=== PATIENT | female | born 1975 | race Caucasian/White ===

== ENCOUNTER 2016-12-27 11:20 | Emergency (ER) | payer OTHER, SELFPAY ==
[2016-12-27] MEDS ORDERED: Sodium Chloride 0.9% 1000 ML 1,000 ML IV STA (11:43)
[2016-12-27] MEDS ORDERED: Sodium Chloride 0.9% 1000 ML 1,000 ML ONE (11:49)
--- NOTE | 2016-12-27 11:50 | ERPHSYRPT ---
- History of Present Illness Time Seen by Provider: 12/27/16 11:37 Source: patient Exam Limitations: no limitations Patient Subjective Stated Complaint: pt broke out in a sweat and then passed out ,she states has not felt well for a couple weeks now states having near syncopal episodes, pt states now feels exhausted, has not eat today Triage Nursing Assessment: pt walked in, alert and oriented, resp easy, right of way man equal, pupils rita,2mm Physician History: 41-year-old white female arrives with complaint of fainted at work today at around 10:45 AM. 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 She did not fall she did not hit her head she has no chest pain shortness of breath abdominal pain nausea vomiting. Patient states she was passed out for maybe 15 minutes. Patient states she has been having problems with her blood pressure at home and feels like his been high home and she states she vitals out sometimes with her blood pressure. Patient also states that she did not eat anything today. Past medical history includes high blood pressure patient also history of seizures in the past which were possibly complex partial also history of depression. Past surgical history includes appendectomy and hysterectomy. Social history is positive for tobacco use she denies alcohol or illicit drug use. Timing/Duration: today (10:45 AM) Severity: moderate Modifying Factors: Improves With: other (ccurred while working) Associated Symptoms: diaphoresis, weakness (felt weak), No nausea, No vomiting, No abdominal pain, No shortness of breath, No heartburn, No cough, No chills, No chest pain, No fever, No headaches, No loss of appetite, No malaise, No rash , No syncope, No seizure Allergies/Adverse Reactions: morphine Allergy (Intermediate, Verified 12/27/16 11:36) Hives Home Medications: Amlodipine Besylate 10 mg [Norvasc 10 MG] 10 mg PO DAILY 08/03/16 [History] Dextroamphetamine/Amphetamine [Adderall 20 mg Tablet] 20 mg PO BID 08/03/16 [ History] Fenofibrate,Micronized 145 mg* [Tricor 145 MG] 145 mg PO DAILY 08/03/16 [ History] Hctz/Triamterene 75/50 mg [Maxzide 75/50] 1 tab PO DAILY 08/03/16 [History] Hydrochlorothiazide 25 mg [hydroDIURIL 25 MG] 25 mg PO DAILY 08/03/16 [ History] Loratadine 10 mg [Claritin 10 mg] 10 mg PO DAILY 08/03/16 [History] Metoprolol Succinate 100 mg [Toprol Xl 100 MG] 100 mg PO DAILY 08/03/16 [ History] Potassium Chloride 10 Meq Tab* [Klor Con 10 MEQ] 10 meq PO DAILY 08/03/16 [ History] Olmesartan Medoxomil 20 mg [Benicar 20 MG] 20 mg DAILY 12/27/16 [History] Omeprazole 20 MG [Prilosec 20 mg] 20 mg DAILY 12/27/16 [History] Hx Tetanus, Diphtheria Vaccination/Date Given: Yes Hx Influenza Vaccination/Date Given: No Hx Pneumococcal Vaccination/Date Given: No Immunizations Up to Date: Yes - Review of Systems Constitutional: No Fever, No Chills Eyes: No Symptoms Ears, Nose, & Throat: No Symptoms, No Ear Pain, No Ear Discharge, No Hearing Changes, No Tinnitus, No Nose Pain, No Nose Congestion, No Nose Discharge, No Sinus Drainage, No Epistaxis, No Mouth Pain, No Mouth Swelling, No Loose Teeth, No Throat Pain, No Throat Swelling, No Hoarse, No Painful Swallowing, No Snoring , No Stridor Respiratory: No Cough, No Dyspnea Cardiac: No Chest Pain, No Edema, No Syncope Abdominal/Gastrointestinal: No Abdominal Pain, No Nausea, No Vomiting, No Diarrhea Genitourinary Symptoms: No Dysuria Musculoskeletal: No Back Pain, No Neck Pain Skin: No Rash Neurological: Other (syncope at work), No Dizziness, No Focal Weakness, No Gait Changes, No Headache, No Irritability, No Lethargy, No Paralysis, No Parasthesia , No Seizure, No Sensory Changes, No Speech Changes, No Tics, No Tremors, No Vertigo Psychological: No Symptoms Endocrine: No Symptoms All Other Systems: Reviewed and Negative - Past Medical History Pertinent Past Medical History: No Neurological History: Seizures ENT History: No Pertinent History Cardiac History: No Pertinent History Respiratory History: No Pertinent History, Other Endocrine Medical History: No Pertinent History Musculoskeletal History: No Pertinent History GI Medical History: No Pertinent History History: No Pertinent History Psycho-Social History: Depression, Other Female Reproductive Disorders: No Pertinent History Other Medical History: last seizure 3 years ago due to prilosec - Past Surgical History Past Surgical History: Yes Neuro Surgical History: No Pertinent History Cardiac: No Pertinent History Respiratory: No Pertinent History Gastrointestinal: Appendectomy Genitourinary: No Pertinent History Musculoskeletal: No Pertinent History Female Surgical History: Hysterectomy - Social History Smoking Status: Current some day smoker How long have you smoked: 20 yrs Exposure to second hand smoke: Yes Drug Use: none Patient Lives Alone: No - Female History Hx Last Menstrual Period: hyster Hx Now: No - Nursing Vital Signs Nursing Vital Signs: Initial Vital Signs Temperature 97.4 F 12/27/16 11:22 Pulse Rate 65 12/27/16 11:22 Respiratory Rate 16 12/27/16 11:22 Blood Pressure 137/80 12/27/16 11:22 O2 Sat by Pulse Oximetry 97 12/27/16 11:22 Pain Scale Pain Intensity 0 - Physical Exam General Appearance: no apparent distress, alert Eye Exam: PERRL/EOMI, eyes nml inspection Ears, Nose, Throat Exam: normal ENT inspection, TMs normal, pharynx normal, moist mucous membranes Neck Exam: normal inspection, non-tender, supple, full range of motion Respiratory Exam: normal breath sounds, lungs clear, No respiratory distress Cardiovascular Exam: regular rate/rhythm, normal heart sounds, normal peripheral pulses Gastrointestinal/Abdomen Exam: soft, normal bowel sounds, No tenderness, No mass Back Exam: normal inspection, normal range of motion, No CVA tenderness, No vertebral tenderness Extremity Exam: normal inspection, normal range of motion, pelvis stable Neurologic Exam: alert, oriented x 3, cooperative, normal mood/affect, nml cerebellar function, nml station & gait, sensation nml, No motor deficits, No sensory deficit, No disoriented, No confusion, No agitation, No uncooperative, No intoxicated appearance, No depressed mood/affect, No motor weakness, No facial droop, No slurred speech, No aphasia, No dysarthria, No abnormal gait, No abnormal cerebellar tests, 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, No EOM palsy Skin Exam: normal color, warm, dry, No rash Lymphatic Exam: No adenopathy SpO2 Interpretation: normal (97%) SpO2: 97 Oxygen Delivery: Room Air - Course Nursing assessment & vital signs reviewed: Yes EKG Interpreted by Me: RATE (56 bpm), Sinus Matt, NORMAL AXIS, Other (EKG sinus arrhythmiasinus arrhythmia, 56 bpm, normal axis, no acute ST or T wave changes, no acute changes as compared to March 24, 2012) Ordered Tests: Active Orders 24 hr Category Date Time Status Accucheck STAT Care 12/27/16 11:43 Active EKG-ER Only STAT Care 12/27/16 11:43 Active IV Insertion STAT Care 12/27/16 11:43 Active Orthostatic Vital Signs STAT Care 12/27/16 11:43 Active Pulse Oximetry (ED) STAT Care 12/27/16 11:43 Active CBC W DIFF Stat Lab 12/27/16 12:05 Completed CMP Stat Lab 12/27/16 12:05 Completed TROPONIN Q3H Lab 12/27/16 12:05 Completed TROPONIN Q3H Lab 12/27/16 14:45 Ordered TROPONIN Q3H Lab 12/27/16 17:45 Ordered TROPONIN Q3H Lab 12/27/16 20:45 Ordered TROPONIN Q3H Lab 12/27/16 23:45 Ordered UA W/RFX UR CULTURE Stat Lab 12/27/16 11:43 Completed Medication Summary Discontinued Medications Generic Name Dose Route Start Last Admin Trade Name Freq PRN Reason Stop Dose Admin Sodium Chloride 1,000 mls @ 999 mls/hr 12/27/16 11:43 12/27/16 11:49 Sodium Chloride 0.9% 1000 Ml IV 12/27/16 12:43 999 mls/hr .Q1H1M STA Administration Sodium Chloride Confirm 12/27/16 11:49 Sodium Chloride 0.9% 1000 Ml Administered 12/27/16 11:50 Dose 1,000 mls @ ud .ROUTE .STK-MED ONE Lab/Rad Data: Laboratory Result Diagrams 12/27/16 12:05 12/27/16 12:05 Laboratory Results 12/27/16 12/27/16 12/27/16 Range/Units 12:05 12:05 12:05 WBC 7.4 (4.0-10.5) K/mm3 RBC 5.03 (4.1-5.4) M/mm3 Hgb 14.7 (12.0-16.0) gm/dl Hct 43.7 (35-47) % MCV 86.9 (78-100) fl MCH 29.2 (26-32) pg MCHC 33.6 (32-36) g/dl RDW 13.3 (11.5-14.0) % Plt Count 217 (150-450) K/mm3 MPV 11.8 H (6-9.5) fl Gran % 66.1 H (36.0-66.0) % Lymphocytes % 23.9 L (24.0-44.0) % Monocytes % 6.5 (0.0-12.0) % Eosinophils % 3.0 (0.00-5.0) % Basophils % 0.5 (0.0-0.4) % Basophils # 0.04 (0-0.4) Sodium 142 (136-145) mEq/L Potassium 4.2 (3.5-5.1) mEq/L Chloride 108 H (98-107) mEq/L Carbon Dioxide 23.1 (21-32) mEq/L Anion Gap 15.1 H (5-15) MEQ/L BUN 23 H (9-20) mg/dL Creatinine 1.44 H (0.55-1.30) mg/dl Estimated GFR 42 ML/MIN Glucose 102 (70-110) MG/DL Calcium 9.6 (8.5-10.1) mg/dL Total Bilirubin 0.30 (0.2-1.0) mg/dL AST 22 (15-37) U/L ALT 24 (12-78) U/L Alkaline Phosphatase 61 (46-116) U/L Troponin I < 0.017 (0.000-0.056) ng/ml Serum Total Protein 7.6 (6.4-8.2) gm/dL Albumin 4.1 (3.4-5.0) g/dL Ur Collection Type Urine Color (YELLOW) Urine Appearance (CLEAR) Urine pH (5-6) Ur Specific [place] (1.005-1.025) Urine Protein (Negative) Urine Ketones (NEGATIVE) Urine Blood (0-5) Fabio/ul Urine Nitrite (NEGATIVE) Urine Bilirubin (NEGATIVE) Urine Urobilinogen (0-1) mg/dL Ur Leukocyte Esterase (NEGATIVE) Urine Glucose (NEGATIVE) mg/dL Specimen Received 12/27/16 Range/Units 11:43 WBC (4.0-10.5) K/mm3 RBC (4.1-5.4) M/mm3 Hgb (12.0-16.0) gm/dl Hct (35-47) % MCV (78-100) fl MCH (26-32) pg MCHC (32-36) g/dl RDW (11.5-14.0) % Plt Count (150-450) K/mm3 MPV (6-9.5) fl Gran % (36.0-66.0) % Lymphocytes % (24.0-44.0) % Monocytes % (0.0-12.0) % Eosinophils % (0.00-5.0) % Basophils % (0.0-0.4) % Basophils # (0-0.4) Sodium (136-145) mEq/L Potassium (3.5-5.1) mEq/L Chloride (98-107) mEq/L Carbon Dioxide (21-32) mEq/L Anion Gap (5-15) MEQ/L BUN (9-20) mg/dL Creatinine (0.55-1.30) mg/dl Estimated GFR ML/MIN Glucose (70-110) MG/DL Calcium (8.5-10.1) mg/dL Total Bilirubin (0.2-1.0) mg/dL AST (15-37) U/L ALT (12-78) U/L Alkaline Phosphatase (46-116) U/L Troponin I (0.000-0.056) ng/ml Serum Total Protein (6.4-8.2) gm/dL Albumin (3.4-5.0) g/dL Ur Collection Type VOID Urine Color YELLOW (YELLOW) Urine Appearance CLEAR (CLEAR) Urine pH 5.0 (5-6) Ur Specific [place] 1.020 (1.005-1.025) Urine Protein NEGATIVE (Negative) Urine Ketones NEGATIVE (NEGATIVE) Urine Blood NEGATIVE (0-5) Fabio/ul Urine Nitrite NEGATIVE (NEGATIVE) Urine Bilirubin NEGATIVE (NEGATIVE) Urine Urobilinogen NORMAL (0-1) mg/dL Ur Leukocyte Esterase NEGATIVE (NEGATIVE) Urine Glucose NEGATIVE (NEGATIVE) mg/dL Specimen Received 12/27/16 1143 - Progress Progress: improved Progress Note: 12/27/16 13:05 41-year-old white female passed out at work today she has been having problems with her blood pressure. She states that she became diaphoretic and passed out. She states she did not eat today. She arrives alert oriented 3 she is in no distress she has had no problems since arrival. Orthostatic vital signs are normal. Labs are essentially normal with the exception of elevated GFR. And mildly elevated BUN and creatinine. Troponin within normal limits EKG no acute changes CBC within normal limits. Patient has been given 1 L of normal saline. Will plan to discharge. Diagnosis syncope (vasovagal) Mild dehydration. Patient does have a history of complex partial seizures noted in the past patient advised not to drive to avoid heights take showers instead of baths and not engage in any activity which can harm herself or others. Will give patient today tomorrow off work patient is to return home and rest and follow-up with her family doctor call him for an appointment. - Departure Time of Disposition: 13:07 Departure Disposition: Home Clinical Impression: Vasovagal syncope, Mild dehydration, History of seizures Condition: Fair Critical Care Time: No Instructions: Fainting Additional Instructions: Return home rest plenty of fluids. Eat frequent small meals. No heights, no hazardous activity, no driving, take showers instead of baths. Follow-up with your family doctor call today to schedule an appointment. Return for acute distress or for severe symptoms.
[2016-12-27 12:16] LABS: BASOPHIL % 0.5 % (0.0-0.4); Granulocytes % 66.1 % (36.0-66.0); Lymphocytes % 23.9 % (24.0-44.0); Mean Cell Volume 86.9 fl (78-100); Mean Corpuscular Hemoglobin 29.2 pg (26-32); Mean Platelet Volume 11.8 fl (6-9.5); Monocytes % 6.5 % (0.0-12.0); Platelet Count 217 K/mm3 (150-450); Red Blood Count 5.03 M/mm3 (4.1-5.4); Red Cell Distribution Width 13.3 % (11.5-14.0); White Blood Count 7.4 K/mm3 (4.0-10.5)
[2016-12-27 12:19] LABS: ADD URINE CULTURE? NO (NO); Bilirubin NEGATIVE (NEGATIVE); Blood NEGATIVE Ery/ul (0-5); COMPLETE URINE MICROSCOPIC? NO; Collection Type VOID; Glucose NEGATIVE (NEGATIVE); Leukocyte Esterase NEGATIVE (NEGATIVE)
[2016-12-27 12:47] LABS: ALBUMIN 4.1 g/dL (3.4-5.0); ANION GAP 15.1 MEQ/L (5-15); BILIRUBIN,TOTAL 0.3 mg/dL (0.2-1.0); Carbon Dioxide 23.1 mEq/L (21-32); Potassium 4.2 mEq/L (3.5-5.1); Total Protein 7.6 gm/dL (6.4-8.2)
[2016-12-27 13:03] VITALS: BP 127/79; PULSE 59
[2016-12-27 13:09] VITALS: O2SAT 97
== END 2016-12-27 13:17 | disposition home or self-care (01) ==
LOC: ED 11:20
DX: R55 Syncope and collapse (principal); E86.0 Dehydration; R56.9 Unspecified convulsions; I10 Essential (primary) hypertension; Z79.899 Other long term (current) drug therapy; R61 Generalized hyperhidrosis; R53.1 Weakness
CPT/HCPCS: 36000; 36415; 80053; 81002; 82962; 84484; 85025; 93005; 96360; 99284

== ENCOUNTER 2021-03-23 00:29 | Emergency (ER) | payer OTHER ==
[2021-03-23] MEDS ORDERED: NEOSYNEPHRINE 0.5% NASAL SPRAY/DROPS ONE (00:53)
[2021-03-23] MEDS ORDERED: NEOSYNEPHRINE 0.5% NASAL SPRAY/DROPS NS ONE (00:59)
--- NOTE | 2021-03-23 01:00 | ERPHSYRPT ---
- History of Present Illness Time Seen by Provider: 03/23/21 00:40 Source: patient Exam Limitations: no limitations Patient Subjective Stated Complaint: My nose started bleeding and I can't get it to quit Triage Nursing Assessment: pt had nosebleed at home and couldn't get it to quit. Pt was getting out her pills tonight and it started dripping and she couldn't get it to stop. Pt had 2 big clots at home from her nose and one that she spit out. Nose was bleeding slightly upon arrival, Placed nose clip on her. Physician History: This is a 46-year-old white female patient who has a history of hypertension and presents with primarily left nostril epistaxis. Earlier in the day she had used her nasal spray that is a saline spray because she has dry nasal mucosa. She had a small amount of bleeding from the left nostril several hours ago but it had spontaneously stopped after 20 or 30 minutes on its own. This evening, patient was unpacking her items in her new home and was getting ready to take her blood pressure medication when she started having more significant bleeding from her left nostril. She coughed up a couple of clots and there was some bleeding from her left nostril. It did not stop for 30 to 40 minutes and so she came into the emergency room for evaluation. By the time she was in the emergency department room, she did not have any significant bleeding and there were no clots present. Nasal clip was immediately placed. Patient has no bleeding or clotting disorders. Patient is not on any anticoagulation therapy. Her systolic blood pressure when she arrived was 180. However repeat systolic blood pressure was 150. Timing/Duration: abrupt onset, this morning, yesterday Severity: mild ENT Location: nose Prearrival Treatment: squeezing nostrils Associated Symptoms: epistaxis (Left greater than right) Allergies/Adverse Reactions: morphine Allergy (Intermediate, Verified 03/23/21 00:41) Hives Home Medications: Amlodipine Besylate 10 mg [Norvasc 10 MG] 10 mg PO DAILY 08/03/16 [History] Dextroamphetamine/Amphetamine [Adderall 20 mg Tablet] 20 mg PO BID 08/03/16 [History] Fenofibrate,Micronized 145 mg* [Tricor 145 MG] 145 mg PO DAILY 08/03/16 [History] Hctz/Triamterene 75/50 mg [Maxzide 75/50] 1 tab PO DAILY 08/03/16 [History] Hydrochlorothiazide 25 mg [hydroDIURIL 25 MG] 25 mg PO DAILY 08/03/16 [History] Loratadine 10 mg [Claritin 10 mg] 10 mg PO DAILY 08/03/16 [History] Metoprolol Succinate 100 mg [Toprol Xl 100 MG] 100 mg PO DAILY 08/03/16 [History] Potassium Chloride 10 Meq Tab* [Klor Con 10 MEQ] 10 meq PO DAILY 08/03/16 [History] Olmesartan Medoxomil 20 mg [Benicar 20 MG] 20 mg DAILY 12/27/16 [History] Omeprazole 20 MG [Prilosec 20 mg] 20 mg DAILY 12/27/16 [History] Hx Tetanus, Diphtheria Vaccination/Date Given: Yes Hx Influenza Vaccination/Date Given: No Hx Pneumococcal Vaccination/Date Given: No Immunizations Up to Date: Yes Travel Risk - International Travel Have you traveled outside of the country in past 3 weeks: No - Coronavirus Screening Are you exhibiting any of the following symptoms?: No Close contact with a COVID-19 positive Pt in past 14-21 Days: No - Vaccine Status Have you recieved a Covid-19 vaccination: Yes [employer]: [facility] - Vaccination Dates Date of 2cond Vaccination (if applicable): 02/25/21 - Review of Systems Constitutional: No Symptoms Eyes: No Symptoms Ears, Nose, & Throat: Other (Epistaxis left side nostril) Respiratory: No Symptoms Cardiac: No Symptoms Abdominal/Gastrointestinal: No Symptoms Genitourinary Symptoms: No Symptoms Musculoskeletal: No Symptoms Skin: No Symptoms Neurological: No Symptoms Psychological: No Symptoms Endocrine: No Symptoms Hematologic/Lymphatic: No Symptoms Immunological/Allergic: No Symptoms All Other Systems: Reviewed and Negative - Past Medical History Pertinent Past Medical History: Yes Neurological History: Seizures ENT History: No Pertinent History Cardiac History: No Pertinent History Respiratory History: Bronchitis Endocrine Medical History: Diabetes Type II Musculoskeletal History: No Pertinent History GI Medical History: No Pertinent History History: No Pertinent History Psycho-Social History: Depression, Other Female Reproductive Disorders: No Pertinent History Other Medical History: last seizure 3 years ago due to prilosec - Past Surgical History Past Surgical History: Yes Neuro Surgical History: No Pertinent History Cardiac: No Pertinent History Respiratory: No Pertinent History Gastrointestinal: Appendectomy Genitourinary: No Pertinent History Musculoskeletal: No Pertinent History Female Surgical History: Hysterectomy Other Surgical History: bladder repair - Social History Smoking Status: Current every day smoker How long have you smoked: 15 yrs Exposure to second hand smoke: Yes Drug Use: none Patient Lives Alone: No - Female History Hx Now: No - Nursing Vital Signs Nursing Vital Signs: Initial Vital Signs Temperature 99.1 F 03/23/21 00:29 Pulse Rate 117 H 03/23/21 00:29 Respiratory Rate 24 03/23/21 00:29 Blood Pressure 180/115 03/23/21 00:29 O2 Sat by Pulse Oximetry 98 03/23/21 00:29 Pain Scale Pain Intensity 0 - Physical Exam General Appearance: no apparent distress, alert, anxiety Eye Exam: bilateral eye: normal inspection, PERRL, EOMI Ear Exam: bilateral ear: auricle normal Nasal Exam: dried blood (No active bleeding. No bleeding sites visible within the nasal cavity/passages) Throat Exam: normal, pharynx normal (No active bleeding or clots visible.) Neck Exam: normal inspection, non-tender, supple, full range of motion, trachea midline Cardiovascular/Respiratory Exam: chest non-tender, no respiratory distress Abdominal Exam: non-tender Neurologic Exam: alert, oriented x 3, cooperative, toy maker II-XII nml as tested, normal mood/affect, nml cerebellar function, nml station & gait, sensation nml Skin Exam: normal color, warm, dry SpO2 Interpretation: normal SpO2: 98 O2 Delivery: Room Air - Course Nursing assessment & vital signs reviewed: Yes Ordered Tests: Medication Summary Discontinued Medications Generic Name Dose Route Start Last Admin Trade Name Freq PRN Reason Stop Dose Admin Phenylephrine HCl Confirm 03/23/21 00:53 Neosynephrine 0.5% Nasal [place]/Drops Administered 03/23/21 00:54 Dose 15 ml .ROUTE .[employer]-MED ONE - Progress Progress: improved Progress Note: 03/23/21 01:02 The patient states that she prefers the Zafar-Synephrine drops and nasal clip treatment. She does not want labs drawn at this time. She does not want any Rhino Rocket or equivalent nasal packing performed at this time. Counseled pt/family regarding: diagnosis, need for follow-up - Departure Departure Disposition: Home Clinical Impression: Epistaxis, Hypertension Condition: Stable Critical Care Time: No Referrals: GURU GONZALEZ [Primary Care Provider] - Additional Instructions: Use Zafar-Synephrine drops as instructed on the container every 4 hours if needed. If bleeding recurs, place 3 drops in the nostrils and then place the nasal clip as instructed. Return to the emergency department if bleeding does not stop. Take your blood pressure medicine when you get home. Do not pick your nose. Do not blow your nose.
[2021-03-23 01:50] VITALS: BP 167/95; PULSE 85; O2SAT 95
== END 2021-03-23 01:51 | disposition home or self-care (01) ==
LOC: ED 00:29
DX: R04.0 Epistaxis (principal); I10 Essential (primary) hypertension
CPT/HCPCS: 99283; A9270-GY

== ENCOUNTER 2022-12-20 13:12 | Emergency (ER) | payer OTHER ==
[2022-12-20 13:28] VITALS: TEMP 97.1
[2022-12-20] MEDS ORDERED: Zofran 4 MG/2 ML VIAL IV ONE (13:34)
[2022-12-20] MEDS ORDERED: ANTIVERT 25 MG PO ONE (13:34)
[2022-12-20] MEDS ORDERED: Sodium Chloride 0.9% 1000 ML 1,000 ML IV STA (13:34)
--- NOTE | 2022-12-20 13:39 | ERPHSYRPT ---
- History of Present Illness Time Seen by Provider: 12/20/22 13:24 Source: patient Exam Limitations: no limitations Patient Subjective Stated Complaint: Pt reports approx one hour ago while at work she started getting lightheaded and dizzy and became nauseated. Pt states s he has to move real slow to avoid falling due to dizziness. Triage Nursing Assessment: Pt alert and oriented x3. No apparent respiratory distress. Ambulated to ED cot with slow steady gait and assistance by spouse. Skin w/p/d. PERRLA. No active vomiting at this time. Physician History: 47 years old female with history of hypertension, hyperlipidemia, GERD presented in the ER with chief complaint of dizziness/lightheadedness. Patient reports sh celi was working at [employer], turned around too quickly started to feel lightheaded and dizzy with room spinning sensation with movements of head neck and better with resting. No numbness tingling or focal weakness. She also reports associated nausea but no vomiting. Does not report any chest pain palpitations or shortness of breath/blurry vision or difficulty speech associated with it. Symptoms are getting better on presentation in the ER. Timing/Duration: today, sudden, improved Severity: moderate Character of Deficits: none Deficits: no difficulties Baseline/Normal Cognition: alert oriented x 3 Current Cognition: alert oriented x 3 Baseline Gait: walks w/o assistance Associated Symptoms: nausea Allergies/Adverse Reactions: morphine Allergy (Intermediate, Verified 12/20/22 13:24) Hives Home Medications: Amlodipine Besylate 10 mg [Norvasc 10 MG] 10 mg PO DAILY 08/03/16 [History] Dextroamphetamine/Amphetamine [Adderall 20 mg Tablet] 20 mg PO BID 08/03/16 [History] Fenofibrate,Micronized 145 mg* [Tricor 145 MG] 145 mg PO DAILY 08/03/16 [History] Hydrochlorothiazide 25 mg [hydroDIURIL 25 MG] 25 mg PO DAILY 08/03/16 [ History] Loratadine 10 mg [Claritin 10 mg] 10 mg PO DAILY 08/03/16 [History] Metoprolol Succinate 100 mg [Toprol Xl 100 MG] 100 mg PO DAILY 08/03/16 [History] Potassium Chloride Tab* [Klor Con 10 MEQ] 10 meq PO DAILY 08/03/16 [History] Olmesartan Medoxomil 20 mg [Benicar 20 MG] 20 mg PO DAILY 12/27/16 [History] Omeprazole 20 MG [Prilosec 20 mg] 20 mg PO DAILY 12/27/16 [History] Hx Tetanus, Diphtheria Vaccination/Date Given: Yes Hx Influenza Vaccination/Date Given: Yes Hx Pneumococcal Vaccination/Date Given: No Travel Risk - International Travel Have you traveled outside of the country in past 3 weeks: No - Coronavirus Screening Are you exhibiting any of the following symptoms?: No Close contact with a COVID-19 positive Pt in past 14-21 Days: No - Vaccine Status Have you recieved a Covid-19 vaccination: Yes Survey Research Professor: Hojoki - Vaccination Dates Date of 2cond Vaccination (if applicable): 02/25/21 - Review of Systems Constitutional: Fatigue Eyes: No Symptoms Ears, Nose, & Throat: No Symptoms Respiratory: No Symptoms Cardiac: No Symptoms Abdominal/Gastrointestinal: No Symptoms Genitourinary Symptoms: No Symptoms Musculoskeletal: No Symptoms Skin: No Symptoms Neurological: Dizziness Psychological: No Symptoms Endocrine: No Symptoms Hematologic/Lymphatic: No Symptoms Immunological/Allergic: No Symptoms - Past Medical History Pertinent Past Medical History: Yes Neurological History: Seizures ENT History: No Pertinent History Cardiac History: No Pertinent History Respiratory History: Bronchitis Endocrine Medical History: Diabetes Type II Musculoskeletal History: No Pertinent History GI Medical History: No Pertinent History History: No Pertinent History Psycho-Social History: Depression, Other Female Reproductive Disorders: No Pertinent History Other Medical History: last seizure 3 years ago due to prilosec, vagal episode and reports daughter had to do cpr October 28 - Past Surgical History Past Surgical History: Yes Neuro Surgical History: No Pertinent History Cardiac: No Pertinent History Respiratory: No Pertinent History Gastrointestinal: Appendectomy Genitourinary: No Pertinent History Musculoskeletal: No Pertinent History Female Surgical History: Hysterectomy Other Surgical History: bladder repair - Social History Smoking Status: Current every day smoker How long have you smoked: 15 yrs Exposure to second hand smoke: Yes Drug Use: none Patient Lives Alone: No - Female History Hx Last Menstrual Period: hysterectomy Hx Now: No - Nursing Vital Signs Nursing Vital Signs: Initial Vital Signs Temperature 97.1 F 12/20/22 13:17 Pulse Rate 79 12/20/22 13:17 Respiratory Rate 17 12/20/22 13:17 Blood Pressure 102/71 12/20/22 13:17 O2 Sat by Pulse Oximetry 95 12/20/22 13:17 Pain Scale Pain Intensity 0 - Tomas Coma Scale Best Eye Response (Cromwell): (4) open spontaneously Best Verbal Response (Tomas): (5) oriented Best Motor Response (Cromwell): (6) obeys commands Tomas Total: 15 - Physical Exam General Appearance: no apparent distress, alert Eye Exam: bilateral eye: normal inspection, PERRL, EOMI Ears, Nose, Throat Exam: normal ENT inspection, TMs normal, pharynx normal, moist mucous membranes Neck Exam: normal inspection, non-tender, supple, full range of motion Respiratory: normal breath sounds, lungs clear Cardiovascular: regular rate/rhythm, normal heart sounds Gastrointestinal: soft, normal bowel sounds, No tenderness Back Exam: normal inspection, normal range of motion Extremity Exam: normal inspection, normal range of motion, pelvis stable Mental Status: alert, oriented x 3, 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 Exam: normal hearing, normal speech, PERRL Coordination/Gait: normal finger to nose, normal gait, normal cerebellar func tion, negative Romberg's sign Motor/Sensory: no motor deficit, no sensory deficit, no pronator drift, negative Babinski's sign DTR: bicep (R): 2+, bicep (L): 2+, knee (R): 2+, knee (L): 2+ Skin Exam: normal color SpO2 Interpretation: normal SpO2: 95 O2 Delivery: Room Air - Course EKG Interpreted by Me: RATE (76), Sinus Rhythm, NORMAL AXIS, NORMAL INTERVALS, NORMAL QRS Ordered Tests: Medication Summary Discontinued Medications Generic Name Dose Route Start Last Admin Trade Name Branden PRN Reason Stop Dose Admin Sodium Chloride 1,000 mls @ 999 mls/hr 12/20/22 13:34 12/20/22 14:54 Sodium Chloride 0.9% 1000 Ml IV 12/20/22 14:34 Infused .Q1H1M STA Infusion Sodium Chloride Confirm 12/20/22 13:43 Sodium Chloride 0.9% 1000 Ml Administered 12/20/22 13:44 Dose 1,000 mls @ ud .ROUTE .STK-MED ONE Sodium Chloride Confirm 12/20/22 13:51 Sodium Chloride 0.9% 1000 Ml Administered 12/20/22 13:52 Dose 1,000 mls @ ud .ROUTE .STK-MED ONE Magnesium Sulfate/Dextrose 100 mls @ 200 mls/hr 12/20/22 15:32 12/20/22 15:41 Magnesium 1 Gm / 100 Ml D5w IV 12/20/22 16:01 200 mls/hr STAT ONE Administration Magnesium Sulfate/Dextrose Confirm 12/20/22 15:40 Magnesium 1 Gm / 100 Ml D5w Administered 12/20/22 15:41 Dose 100 mls @ ud IV .STK-MED ONE Meclizine HCl 25 mg 12/20/22 13:34 12/20/22 13:53 Meclizine Hcl 25 Mg Tablet PO 12/20/22 13:35 25 mg STAT ONE Administration Meclizine HCl Confirm 12/20/22 13:42 Meclizine Hcl 25 Mg Tablet Administered 12/20/22 13:43 Dose 25 mg .ROUTE .STK-MED ONE Meclizine HCl Confirm 12/20/22 13:51 Meclizine Hcl 25 Mg Tablet Administered 12/20/22 13:52 Dose 25 mg .ROUTE .STK-MED ONE Ondansetron HCl 4 mg 12/20/22 13:34 12/20/22 13:53 Ondansetron Hcl 4 Mg/2 Ml Vial IV 12/20/22 13:35 4 mg STAT ONE Administration Ondansetron HCl Confirm 12/20/22 13:42 Ondansetron Hcl 4 Mg/2 Ml Vial Administered 12/20/22 13:43 Dose 4 mg .ROUTE .STK-MED ONE Ondansetron HCl Confirm 12/20/22 13:51 Ondansetron Hcl 4 Mg/2 Ml Vial Administered 12/20/22 13:52 Dose 4 mg .ROUTE .STK-MED ONE Lab/Rad Data: Laboratory Result Diagrams 12/20/22 13:40 12/20/22 13:40 Laboratory Results 12/20/22 12/20/22 12/20/22 Range/Units 13:40 13:40 13:40 WBC 8.4 (4.0-10.5) x10^3/uL RBC 4.27 (4.1-5.4) x10^6/uL Hgb 13.1 (12.0-16.0) g/dL Hct 38.1 (35-47) % MCV 89.2 (78-100) fL MCH 30.7 (26-32) pg MCHC 34.4 (32-36) g/dL RDW 12.9 (11.5-14.0) % Plt Count 191 (150-450) x10^3/uL MPV 10.5 (7.5-11.0) fL Gran % 67.5 H (36.0-66.0) % Immature Gran % (Auto) 0.4 (0.00-0.4) % Nucleat RBC Rel Count 0.0 (0.00-0.1) % Eos # (Auto) 0.24 (0-0.5) x10^3/uL Immature Gran # (Auto) 0.03 (0.00-0.03) x10^3u/L Absolute Lymphs (auto) 1.90 (1.0-4.6) x10^3/uL Absolute Monos (auto) 0.50 (0.0-1.3) x10^3/uL Absolute Nucleated RBC 0.00 (0.00-0.01) x10^3u/L Lymphocytes % 22.7 L (24.0-44.0) % Monocytes % 6.0 (0.0-12.0) % Eosinophils % 2.9 (0.00-5.0) % Basophils % 0.5 (0.0-0.4) % Absolute Granulocytes 5.65 (1.4-6.9) x10^3/uL Basophils # 0.04 (0-0.4) x10^3/uL Sodium 140 (137-145) mmol/L Potassium 3.3 L (3.5-5.1) mmol/L Chloride 105 (98-107) mmol/L Carbon Dioxide 25 (22-30) mmol/L Anion Gap 13.1 (5-15) MEQ/L BUN 22 H (7-17) mg/dL Creatinine 0.80 (0.52-1.04) mg/dL Estimated GFR > 60.0 ML/MIN Glucose 156 H (74-106) mg/dL Calcium 8.9 (8.4-10.2) mg/dL Magnesium 1.5 L (1.6-2.3) mg/dL Total Bilirubin 0.50 (0.2-1.3) mg/dL AST 32 (14-36) U/L ALT 39 H (0-35) U/L Alkaline Phosphatase 81 (38-126) U/L Troponin I < 0.012 (0.000-0.034) ng/mL Serum Total Protein 7.2 (6.3-8.2) g/dL Albumin 3.8 (3.5-5.0) g/dL - Progress Progress: improved Progress Note: 12/20/22 13:39 47 years old female with history of hypertension, hyperlipidemia, GERD presented in the ER with chief complaint of dizziness/lightheadedness. Patient reports she was working at [employer], turned around too quickly started to feel lightheaded and dizzy with room spinning sensation with movements of head neck and better with resting. No numbness tingling or focal weakness. She also reports associated nausea but no vomiting. Does not report any chest pain palpitations or shortness of breath/blurry vision or difficulty speech associated with it. Symptoms are getting better on presentation in the ER. Orthostatics, fluids and Zofran along with meclizine. Will obtain CT head and baseline labs including cardiac work-up. 12/20/22 15:46 Patient was borderline orthostatics. Given fluids along with meclizine and Zofran, on reevaluation she is symptom-free. She has nonfocal neuro exam. CT head is negative. Normal white count, chemistries showed mildly low magnesium and is getting replacement. Patient's symptoms are more of peripheral vertigo, will continue with meclizine to go home. Recommended outpatient follow-up. Discussed signs symptoms of worsening needing return to ER which she seems unde rstanding. Counseled pt/family regarding: lab results, diagnosis, need for follow-up, rad results, smoking cessation Medical Desision Making - Independent Historian Additional History obtained from: Spouse - Diagnostic Testing Diagnostic test were ordered, analyzed, and reviewed by me: Yes Radiological Interpretation: Reviewed by me - Risk of complications The pt has a mod risk of morbidity or mortality based on: Need for prescription drug management - Departure Departure Disposition: Home Clinical Impression: BPV (benign positional vertigo), Hypomagnesemia Condition: Stable Critical Care Time: No Referrals: MICHELA KAUFFMAN NP [Primary Care Provider] - Follow up with PCP 1 day Instructions: Vertigo (a Type of Dizziness) (DC) Additional Instructions: Plenty of fluids to keep yourself well-hydrated. Follow-up with primary care for reevaluation. Return to ER for worsening dizziness or if having numbness tingling focal weakness, visual disturbance etc. Prescriptions: Meclizine HCl 25 mg [Antivert 25 mg] 25 mg PO Q8HPRN PRN #12 tablet PRN Reason: Dizziness
[2022-12-20] MEDS ORDERED: ANTIVERT 25 MG ONE ×2 (13:42→13:51)
[2022-12-20] MEDS ORDERED: Zofran 4 MG/2 ML VIAL ONE ×2 (13:42→13:51)
[2022-12-20] MEDS ORDERED: Sodium Chloride 0.9% 1000 ML 0 ML ONE (13:43)
[2022-12-20 13:48] LABS: Absolute Neutrophil Ct (ANC) 5.65 x10^3/uL (1.4-6.9); BASOPHIL % 0.5 % (0.0-0.4); Basophil (Absolute #) 0.04 x10^3/uL (0-0.4); Eosinophil % 2.9 % (0.00-5.0); Eosinophil (Absolute #) 0.24 x10^3/uL (0-0.5); Hematocrit 38.1 % (35-47); Hemoglobin 13.1 g/dL (12.0-16.0); IMMATURE GRAN # 0.03 x10^3u/L (0.00-0.03); IMMATURE GRAN % 0.4 % (0.00-0.4); Lymphocytes % 22.7 % (24.0-44.0); Mean Cell Volume 89.2 fL (78-100); Mean Corpuscular Hemoglobin 30.7 pg (26-32); Mean Corpuscular Hgb Concent. 34.4 g/dL (32-36); Mean Platelet Volume 10.5 fL (7.5-11.0); Neutrophil % 67.5 % (36.0-66.0); Platelet Count 191 x10^3/uL (150-450); Red Blood Count 4.27 x10^6/uL (4.1-5.4); Red Cell Distribution Width 12.9 % (11.5-14.0); White Blood Count 8.4 x10^3/uL (4.0-10.5)
[2022-12-20] MEDS ORDERED: Sodium Chloride 0.9% 1000 ML 1,000 ML ONE (13:51)
--- NOTE | 2022-12-20 13:54 | XRAY ---
Indication: Dizziness and lightheaded. Comparison: May 02, 2022 Portable apical lordotic chest again hyperinflated and clear. Heart not enlarged. Bony thorax intact again with osteopenia. Impression: Continue nonacute hyperinflated chest.
[2022-12-20 14:02] LABS: ALBUMIN 3.8 g/dL (3.5-5.0); ALKALINE PHOSPHATASE 81 U/L (38-126); ANION GAP 13.1 MEQ/L (5-15); BLOOD UREA NITROGEN 22 mg/dL (7-17); CHLORIDE 105 mmol/L (98-107); Calcium 8.9 mg/dL (8.4-10.2); Carbon Dioxide 25 mmol/L (22-30); EST GLOMERULAR FILTRATION RATE > 60.0 ML/MIN; Glucose 156 mg/dL (74-106); MAGNESIUM 1.5 mg/dL (1.6-2.3); Potassium 3.3 mmol/L (3.5-5.1); SGOT/AST 32 U/L (14-36); SGPT/ALT 39 U/L (0-35); SODIUM 140 mmol/L (137-145); Total Protein 7.2 g/dL (6.3-8.2)
--- NOTE | 2022-12-20 14:24 | XRAY ---
Indication: Dizziness. Multiple contiguous axial images obtained at the head without contrast. Comparison: None Normal appearing brain parenchyma, ventricles, and bony calvarium. Visualized paranasal sinuses and mastoid air cells are clear. Impression: Normal CT head without contrast exam.
[2022-12-20] MEDS ORDERED: Magnesium 1 Gm / 100 Ml D5W*** 100 ML IV ONE ×2 (15:32→15:40)
[2022-12-20 15:49] VITALS: O2SAT 95
[2022-12-20 16:16] VITALS: BP 99/56; PULSE 59; RESP 17
== END 2022-12-20 16:22 | disposition home or self-care (01) ==
LOC: ED 13:12
DX: H81.10 Benign paroxysmal vertigo, unspecified ear (principal); E83.42 Hypomagnesemia; R11.0 Nausea; E11.9 Type 2 diabetes mellitus without complications; I10 Essential (primary) hypertension; E78.5 Hyperlipidemia, unspecified; Z79.899 Other long term (current) drug therapy; Z72.0 Tobacco use
CPT/HCPCS: 36000; 36415; 70450; 71045; 80053; 83735; 84484; 85025; 93005; 96360; 96374; 99284; J2405; J3475; A9270-GY

== ENCOUNTER 2023-04-26 05:44 | Emergency (ER) | payer OTHER ==
[2023-04-26 06:05] VITALS: TEMP 96.5
--- NOTE | 2023-04-26 06:19 | ERPHSYRPT ---
- History of Present Illness Source: patient, family (Patient's daughter provided independent, additional history) Exam Limitations: no limitations Patient Subjective Stated Complaint: Daughter of patient states, "I found her unresponsive on the toliet. I think she vagaled down when having diarrhea. She was out of it for a minute or so but confused for like 10 minutes" Pt states, "I remember passing out. I was using the bathroom. I've had diarrhea and my stomach is hurting". 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 Pt is alert and oriented x 3 upon ER arrival. Pt skin is pink, warm, and dry. Respirations are unlabored, noted mild wheezes throughout upon exhalation. Hx of smoking. Pt complains of lower diffused abdominal pains, rates pain a 1/10 scale. Pt abdomen is soft and non-tender upon exam. Pt pupils are PERRL but slightly dilated. Pt appear weak but able to slowly ambulate to bed. Patient states she was hospitalized in October for blood clot which resulted in cardiac arrest. Timing/Duration: yesterday Severity: moderate Character of Deficits: none Deficits: no difficulties Baseline/Normal Cognition: alert oriented x 3 Current Cognition: alert oriented x 3 Baseline Gait: walks w/o assistance Associated Symptoms: other (Abdominal cramping and diarrheal stools) Hx Tetanus, Diphtheria Vaccination/Date Given: No Hx Influenza Vaccination/Date Given: No Hx Pneumococcal Vaccination/Date Given: No Immunizations Up to Date: No <SRI SMALL - Last Filed: 04/26/23 06:50> <AINSLEY MACIAS - Last Filed: 04/26/23 10:47> - History of Present Illness Time Seen by Provider: 04/26/23 06:05 Physician History: This is an obese 48-year-old white female 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 Menjivar out of [place] who presents with a syncopal episode. Patient arrives by private vehicle. Prior to arrival by private vehicle, paramedics were contacted and the patient declined ambulance transportation to the hospital. Patient was brought to the emergency department by the patient's daughter who provided additional, independent history. Patient was having abdominal cramping pain and diarrheal episodes beginning yesterday, 04/25/2023. Prior to arrival, patient went to use the toilet and had a syncopal episode while passing a diarrheal stool. Patient's daughter found the patient on the toilet. Patient was seen in our emergency department on 12/20/2022. She had had lightheadedness at that time. In October 2022 patient had "code arrest" per patient and patient's daughter. Patient currently denies chest pain. She denies shortness of breath. She does have abdominal cramping that is diffuse. She feels nauseated but has not had any vomiting. Patient has a history of hyperlipidemia, hypertension, gastroesophageal reflux disease, type 2 diabetes, seizure disorder and depression. (SRI SMALL) Allergies/Adverse Reactions: morphine Allergy (Intermediate, Verified 04/26/23 06:05) Hives Home Medications: Amlodipine Besylate 10 mg [Norvasc 10 MG] 10 mg PO DAILY 08/03/16 [History] Dextroamphetamine/Amphetamine [Adderall 20 mg Tablet] 20 mg PO BID 08/03/16 [History] Hydrochlorothiazide 25 mg [hydroDIURIL 25 MG] 25 mg PO DAILY 08/03/16 [History] Loratadine 10 mg [Claritin 10 mg] 10 mg PO DAILY 08/03/16 [History] Metoprolol Succinate 100 mg [Toprol Xl 100 MG] 100 mg PO DAILY 08/03/16 [History] Potassium Chloride Tab* [Klor Con 10 MEQ] 10 meq PO DAILY 08/03/16 [History] Olmesartan Medoxomil 20 mg [Benicar 20 MG] 20 mg PO DAILY 12/27/16 [History] Omeprazole 20 MG [Prilosec 20 mg] 20 mg PO DAILY 12/27/16 [History] Aspirin 325 mg PO DAILY 04/26/23 [History] Travel Risk - International Travel Have you traveled outside of the country in past 3 weeks: No - Coronavirus Screening Are you exhibiting any of the following symptoms?: Yes Symptoms: Vomiting/Diarrhea Close contact with a COVID-19 positive Pt in past 14-21 Days: No - Vaccine Status Have you recieved a Covid-19 vaccination: Yes 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: [employer] - Vaccination Dates Date of 2cond Vaccination (if applicable): 02/25/21 <SRI SMALL - Last Filed: 04/26/23 06:50> - Review of Systems Constitutional: No Symptoms Eyes: No Symptoms Ears, Nose, & Throat: No Symptoms Respiratory: No Symptoms Cardiac: No Symptoms Abdominal/Gastrointestinal: Abdominal Pain, Nausea, Diarrhea Genitourinary Symptoms: No Symptoms Musculoskeletal: No Symptoms Skin: No Symptoms Neurological: Other (Syncopal episode) Psychological: No Symptoms Endocrine: No Symptoms Hematologic/Lymphatic: No Symptoms Immunological/Allergic: No Symptoms All Other Systems: Reviewed and Negative <SRI SMALL - Last Filed: 04/26/23 06:50> - Past Medical History Pertinent Past Medical History: Yes Neurological History: Seizures ENT History: No Pertinent History Cardiac History: Other Respiratory History: Bronchitis Endocrine Medical History: Diabetes Type II Musculoskeletal History: No Pertinent History GI Medical History: No Pertinent History History: No Pertinent History Psycho-Social History: Depression, Other Female Reproductive Disorders: No Pertinent History Other Medical History: last seizure 3 years ago due to prilosec, vagal episode and reports daughter had to do cpr October 28 - Past Surgical History Past Surgical History: Yes Neuro Surgical History: No Pertinent History Cardiac: No Pertinent History Respiratory: No Pertinent History Gastrointestinal: Appendectomy Genitourinary: No Pertinent History Musculoskeletal: No Pertinent History Female Surgical History: Hysterectomy Other Surgical History: bladder repair - Social History Smoking Status: Current every day smoker How long have you smoked: 20 Exposure to second hand smoke: No Drug Use: none Patient Lives Alone: No <SRI SMALL - Last Filed: 04/26/23 06:50> - Milton Coma Scale Best Eye Response (Milton): (4) open spontaneously Best Verbal Response (Milton): (5) oriented Best Motor Response (Tomas): (6) obeys commands Milton Total: 15 - Physical Exam General Appearance: no apparent distress, alert, anxiety Eye Exam: bilateral eye: normal inspection, PERRL, EOMI Ears, Nose, Throat Exam: normal ENT inspection, moist mucous membranes Neck Exam: normal inspection, non-tender, supple, full range of motion Respiratory: normal breath sounds, lungs clear, airway intact, No chest tenderness, No respiratory distress Cardiovascular: regular rate/rhythm, normal heart sounds, normal peripheral pulses Gastrointestinal: soft, normal bowel sounds, tenderness (Mild diffuse to palpation), guarding (Mild diffuse to palpation), No rebound Pelvic Exam: not done Rectal Exam: not done Back Exam: normal inspection, normal range of motion, No CVA tenderness, No vertebral tenderness Extremity Exam: normal inspection, normal range of motion, pelvis stable Mental Status: alert, oriented x 3, 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 Exam: normal hearing, normal speech, PERRL Motor/Sensory: no motor deficit, no sensory deficit Skin Exam: normal color, warm SpO2 Interpretation: normal SpO2: 95 O2 Delivery: Room Air <SRI SMALL - Last Filed: 04/26/23 06:50> - Nursing Vital Signs Nursing Vital Signs: Initial Vital Signs Temperature 96.5 F 04/26/23 05:56 Pulse Rate 68 04/26/23 05:56 Respiratory Rate 16 04/26/23 05:56 Blood Pressure 131/83 04/26/23 05:56 O2 Sat by Pulse Oximetry 95 04/26/23 05:56 Pain Scale Pain Intensity 0 - Course Nursing assessment & vital signs reviewed: Yes EKG Interpreted by Me: RATE (69), Sinus Rhythm, NORMAL AXIS, NORMAL INTERVALS, NORMAL QRS, NORMAL ST-T, Other (No acute ischemic changes on today's twelve-lead EKG.) <SRI SMALL - Last Filed: 04/26/23 06:50> - CT Exams Head CT Interpretation: Tele-radiologist Report (No acute disease per talar head.) Abdomen/Pelvis CT Interpretation: Tele-radiologist Report (CT abdomen pelvis without contrast/ no acute disease per telemetry read) Chest CT Interpretation: Discussed w/radiologist (CT of chest per Dr. Santiago-no acute disease. Coronary artery calcifications noted.) <AINSLEY MACIAS - Last Filed: 04/26/23 10:47> Ordered Tests: Active Orders 24 hr Category Date Time Status EKG-ER Only STAT Care 04/26/23 06:29 Active IV Insertion STAT Care 04/26/23 06:29 Active ABDOMEN AND PELVIS W/0 CONTRAS [CT] Stat Exams 04/26/23 06:33 Completed CHEST WITH CONTRAST [CT] Stat Exams 04/26/23 08:01 Completed HEAD WITHOUT CONTRAST [CT] Stat Exams 04/26/23 06:29 Completed CBC W DIFF Stat Lab 04/26/23 06:03 Completed CMP Stat Lab 04/26/23 06:03 Completed D-DIMER QUANTITATIVE Stat Lab 04/26/23 06:03 Completed TROPONIN Q4H Lab 04/26/23 06:03 Completed TROPONIN Q4H Lab 04/26/23 09:40 Completed TROPONIN Q4H Lab 04/26/23 14:45 Ordered UA W/RFX UR CULTURE Stat Lab 04/26/23 09:48 Completed Medication Summary Generic Name Dose Route Start Last Admin Trade Name Freq PRN Reason Stop Dose Admin Sodium Chloride 1,000 mls @ 50 mls/hr 04/26/23 06:30 04/26/23 07:22 Sodium Chloride 0.9% 1000 Ml IV 05/26/23 06:29 50 mls/hr .Q20H CRISTIANA Administration Lab/Rad Data: Laboratory Result Diagrams 04/26/23 06:03 04/26/23 06:03 Laboratory Results 04/26/23 04/26/23 04/26/23 Range/Units 09:48 09:40 08:09 WBC (4.0-10.5) x10^3/uL RBC (4.1-5.4) x10^6/uL Hgb (12.0-16.0) g/dL Hct (35-47) % MCV (78-100) fL MCH (26-32) pg MCHC (32-36) g/dL RDW (11.5-14.0) % Plt Count (150-450) x10^3/uL MPV (7.5-11.0) fL Gran % (36.0-66.0) % Immature Gran % (Auto) (0.00-0.4) % Nucleat RBC Rel Count (0.00-0.1) % Eos # (Auto) (0-0.5) x10^3/uL Immature Gran # (Auto) (0.00-0.03) x10^3u/L Absolute Lymphs (auto) (1.0-4.6) x10^3/uL Absolute Monos (auto) (0.0-1.3) x10^3/uL Absolute Nucleated RBC (0.00-0.01) x10^3u/L Lymphocytes % (24.0-44.0) % Monocytes % (0.0-12.0) % Eosinophils % (0.00-5.0) % Basophils % (0.0-0.4) % Absolute Granulocytes (1.4-6.9) x10^3/uL Basophils # (0-0.4) x10^3/uL D-Dimer (0.0-0.50) mg/L Sodium (137-145) mmol/L Potassium (3.5-5.1) mmol/L Chloride (98-107) mmol/L Carbon Dioxide (22-30) mmol/L Anion Gap (5-15) MEQ/L BUN (7-17) mg/dL Creatinine (0.52-1.04) mg/dL Estimated GFR ML/MIN Glucose (74-106) mg/dL Calcium (8.4-10.2) mg/dL Total Bilirubin (0.2-1.3) mg/dL AST (14-36) U/L ALT (0-35) U/L Alkaline Phosphatase (38-126) U/L Troponin I < 0.012 (0.000-0.034) ng/mL Serum Total Protein (6.3-8.2) g/dL Albumin (3.5-5.0) g/dL Urine Color Yellow (Yellow) Urine Appearance Clear (Clear) Urine pH 5.0 (4.6-8.0) Ur Specific [place] >=1.030 A (1.005-1.030) Urine Protein Negative (Negative) Urine Glucose (UA) Negative (Negative) mg/dL Urine Ketones Negative (Negative) Urine Blood Negative (Negative) Urine Nitrite Negative (Negative) Urine Bilirubin Negative (Negative) Urine Urobilinogen 0.2 (0.2) mg/dL Ur Leukocyte Esterase Negative (Negative) U Hyaline Cast (Auto) NONE SEEN (0-2) /LPF Urine Microscopic RBC 0-2 (0-5) /HPF Urine Microscopic WBC 0-2 (0-5) /HPF Ur Epithelial Cells Few (None Seen) /HPF Urine Bacteria None Seen (None Seen) /HPF Urine Culture Reflexed NO (NO) Influenza Type A Ag NEGATIVE (NEGATIVE) Influenza Type B Ag NEGATIVE (NEGATIVE) RSV (PCR) NEGATIVE (NEGATIVE) SARS-CoV-2 (PCR) NEGATIVE (NEGATIVE) 04/26/23 04/26/23 04/26/23 Range/Units 06:03 06:03 06:03 WBC (4.0-10.5) x10^3/uL RBC (4.1-5.4) x10^6/uL Hgb (12.0-16.0) g/dL Hct (35-47) % MCV (78-100) fL MCH (26-32) pg MCHC (32-36) g/dL RDW (11.5-14.0) % Plt Count (150-450) x10^3/uL MPV (7.5-11.0) fL Gran % (36.0-66.0) % Immature Gran % (Auto) (0.00-0.4) % Nucleat RBC Rel Count (0.00-0.1) % Eos # (Auto) (0-0.5) x10^3/uL Immature Gran # (Auto) (0.00-0.03) x10^3u/L Absolute Lymphs (auto) (1.0-4.6) x10^3/uL Absolute Monos (auto) (0.0-1.3) x10^3/uL Absolute Nucleated RBC (0.00-0.01) x10^3u/L Lymphocytes % (24.0-44.0) % Monocytes % (0.0-12.0) % Eosinophils % (0.00-5.0) % Basophils % (0.0-0.4) % Absolute Granulocytes (1.4-6.9) x10^3/uL Basophils # (0-0.4) x10^3/uL D-Dimer 0.57 H (0.0-0.50) mg/L Sodium 137 (137-145) mmol/L Potassium 3.6 (3.5-5.1) mmol/L Chloride 105 (98-107) mmol/L Carbon Dioxide 21 L (22-30) mmol/L Anion Gap 14.1 (5-15) MEQ/L BUN 33 H (7-17) mg/dL Creatinine 0.78 (0.52-1.04) mg/dL Estimated GFR 92.5 ML/MIN Glucose 133 H (74-106) mg/dL Calcium 9.9 (8.4-10.2) mg/dL Total Bilirubin 0.70 (0.2-1.3) mg/dL AST 47 H (14-36) U/L ALT 77 H (0-35) U/L Alkaline Phosphatase 82 (38-126) U/L Troponin I < 0.012 (0.000-0.034) ng/mL Serum Total Protein 8.0 (6.3-8.2) g/dL Albumin 4.7 (3.5-5.0) g/dL Urine Color (Yellow) Urine Appearance (Clear) Urine pH (4.6-8.0) Ur Specific [place] (1.005-1.030) Urine Protein (Negative) Urine Glucose (UA) (Negative) mg/dL Urine Ketones (Negative) Urine Blood (Negative) Urine Nitrite (Negative) Urine Bilirubin (Negative) Urine Urobilinogen (0.2) mg/dL Ur Leukocyte Esterase (Negative) U Hyaline Cast (Auto) (0-2) /LPF Urine Microscopic RBC (0-5) /HPF Urine Microscopic WBC (0-5) /HPF Ur Epithelial Cells (None Seen) /HPF Urine Bacteria (None Seen) /HPF Urine Culture Reflexed (NO) Influenza Type A Ag (NEGATIVE) Influenza Type B Ag (NEGATIVE) RSV (PCR) (NEGATIVE) SARS-CoV-2 (PCR) (NEGATIVE) 04/26/23 Range/Units 06:03 WBC 8.5 (4.0-10.5) x10^3/uL RBC 5.23 (4.1-5.4) x10^6/uL Hgb 15.5 (12.0-16.0) g/dL Hct 46.2 (35-47) % MCV 88.3 (78-100) fL MCH 29.6 (26-32) pg MCHC 33.5 (32-36) g/dL RDW 13.1 (11.5-14.0) % Plt Count 244 (150-450) x10^3/uL MPV 10.7 (7.5-11.0) fL Gran % 53.5 (36.0-66.0) % Immature Gran % (Auto) 0.4 (0.00-0.4) % Nucleat RBC Rel Count 0.0 (0.00-0.1) % Eos # (Auto) 0.18 (0-0.5) x10^3/uL Immature Gran # (Auto) 0.03 (0.00-0.03) x10^3u/L Absolute Lymphs (auto) 3.00 (1.0-4.6) x10^3/uL Absolute Monos (auto) 0.66 (0.0-1.3) x10^3/uL Absolute Nucleated RBC 0.00 (0.00-0.01) x10^3u/L Lymphocytes % 35.4 (24.0-44.0) % Monocytes % 7.8 (0.0-12.0) % Eosinophils % 2.1 (0.00-5.0) % Basophils % 0.8 (0.0-0.4) % Absolute Granulocytes 4.54 (1.4-6.9) x10^3/uL Basophils # 0.07 (0-0.4) x10^3/uL D-Dimer (0.0-0.50) mg/L Sodium (137-145) mmol/L Potassium (3.5-5.1) mmol/L Chloride (98-107) mmol/L Carbon Dioxide (22-30) mmol/L Anion Gap (5-15) MEQ/L BUN (7-17) mg/dL Creatinine (0.52-1.04) mg/dL Estimated GFR ML/MIN Glucose (74-106) mg/dL Calcium (8.4-10.2) mg/dL Total Bilirubin (0.2-1.3) mg/dL AST (14-36) U/L ALT (0-35) U/L Alkaline Phosphatase (38-126) U/L Troponin I (0.000-0.034) ng/mL Serum Total Protein (6.3-8.2) g/dL Albumin (3.5-5.0) g/dL Urine Color (Yellow) Urine Appearance (Clear) Urine pH (4.6-8.0) Ur Specific [place] (1.005-1.030) Urine Protein (Negative) Urine Glucose (UA) (Negative) mg/dL Urine Ketones (Negative) Urine Blood (Negative) Urine Nitrite (Negative) Urine Bilirubin (Negative) Urine Urobilinogen (0.2) mg/dL Ur Leukocyte Esterase (Negative) U Hyaline Cast (Auto) (0-2) /LPF Urine Microscopic RBC (0-5) /HPF Urine Microscopic WBC (0-5) /HPF Ur Epithelial Cells (None Seen) /HPF Urine Bacteria (None Seen) /HPF Urine Culture Reflexed (NO) Influenza Type A Ag (NEGATIVE) Influenza Type B Ag (NEGATIVE) RSV (PCR) (NEGATIVE) SARS-CoV-2 (PCR) (NEGATIVE) <SRI SMALL - Last Filed: 04/26/23 06:50> - Progress Counseled pt/family regarding: lab results, diagnosis, need for follow-up, rad results <AINSLEY MACIAS - Last Filed: 04/26/23 10:47> - Progress Progress Note: 04/26/23 06:28 This patient's medical issue is 1 of at least moderate complexity. Level complex in the workup performed is based on review of the patient's past medical history, review the patient's medication list, review of the patient's drug allergy list, history present illness and physical findings on examination. The workup in this patient includes placement of an intravenous line, twelve-lead EKG, CT scan of the head, CBC, CMP, urinalysis, troponin level, CT scan of the abdomen pelvis without contrast. 04/26/23 06:50 Patient is being transferred to Dr. Macias at shift change. He has been informed of the patient history and presenting complaint and the workup that is pending. He will follow-up on the workup results and make final disposition. (SRI SMALL) 04/26/23 08:1Assumed care of patient at [address] Small. Patient is a 48-year-old female who had a syncopal episode at approximately 5 AM this morning while having a bowel movement. History per patient and her dee [facility] who state the patient has history of syncopal episodes of unknown etiology for many years. They state that patient had a cardiac arrest on 10/29/2022 where CPR was performed with patient subsequently having a cardiac catheterization with a block each that was not angioplastied. Past medical history includes diabetes mellitus type 2, hypertension, and smoking 1 pack a day. She has had a mild upper respiratory infection and is currently on steroids. Patient currently denies any chest pain, focal weakness, fever, but has had some mild nausea. She has chronic diarrhea and stool is mildly loose at this time. She is alert and oriented x 3 without any focal weakness at this time. Lungs-rales a fourth way up bilaterally. Heart-regular rate and rhythm with 2/6 systolic ejection murmur. Abdomen-obese, soft, nontender to palpation Neuro-alert and oriented x 3, no focal weakness, cranial nerves II through XII intact. Pupils equal round reactive to light direct and consensually/TMs clear bilaterally/oropharynx mild erythema without airway obstruction. EKG normal sinus rhythm/rate 69/normal QT-QTc/T waves within normal limits/possible left atrial enlargement/no acute ST segment changes. 04/26/23 10:32 Nursing note and vital signs reviewed. No food or housing insecurities noted. All lab results reviewed and thoroughly explained to patient. CT of the head abdomen pelvis without contrast were negative per radiology. CT of the chest was negative per radiology also. Patient's troponin was negative x 2 and EKG was without acute changes. Patient stable throughout stay without any ectopy and vital signs have been stable. Discussed observational admit with patient due to patient's past medical history of possible cardiac arrest, but patient refuses observational stay at this time because she has to go to a catholic function tonight. Risks explained to patient including possible arrhythmia/cardiac arrest,but patient still wants to be discharged. Patient stable upon discharge.She had no chest pain, dyspnea, fever, or focal weakness during her entire stay. Serial neurologic exams negative. Patient able to walk to restroom without difficulty. 04/26/23 10:46 Additional history per who showed up later in the visit. He states that she has these episodes fairly frequently and that she is at her baseline. (AINSLEY MACIAS) Medical Desision Making - Independent Historian Additional History obtained from: Family <SRI SMALL - Last Filed: 04/26/23 06:50> - Diagnostic Testing Diagnostic test were ordered, analyzed, and reviewed by me: Yes Radiological Interpretation: Reviewed by me - Risk of complications Low Risk: Low risk of morbidity from additional dx testing or treatment <AINSLEY MACIAS - Last Filed: 04/26/23 10:47> - Departure Departure Disposition: Observation Critical Care Time: No <SRI SMALL - Last Filed: 04/26/23 06:50> - Departure Departure Disposition: Home <AINSLEY MACIAS - Last Filed: 04/26/23 10:47> - Departure Clinical Impression: Episode of syncope Condition: Stable Referrals: MICHELA KAUFFMAN NP [Primary Care Provider] - Follow up/PCP as directed Instructions: Syncope (Fainting) (DC) Additional Instructions: Follow-up with your family MD in 1 to 2 days. Return to ER for chest pain, shortness of breath, temperature greater 100.5, lightheadedness, confusion, or focal weakness. Continue current medications.
[2023-04-26] MEDS ORDERED: Sodium Chloride 0.9% 1000 ML 1,000 ML IV SCH (06:30)
[2023-04-26 06:46] LABS: Absolute Neutrophil Ct (ANC) 4.54 x10^3/uL (1.4-6.9); BASOPHIL % 0.8 % (0.0-0.4); Basophil (Absolute #) 0.07 x10^3/uL (0-0.4); Eosinophil % 2.1 % (0.00-5.0); Eosinophil (Absolute #) 0.18 x10^3/uL (0-0.5); Hematocrit 46.2 % (35-47); Hemoglobin 15.5 g/dL (12.0-16.0); IMMATURE GRAN # 0.03 x10^3u/L (0.00-0.03); IMMATURE GRAN % 0.4 % (0.00-0.4); Lymphocytes % 35.4 % (24.0-44.0); Mean Cell Volume 88.3 fL (78-100); Mean Corpuscular Hemoglobin 29.6 pg (26-32); Mean Corpuscular Hgb Concent. 33.5 g/dL (32-36); Mean Platelet Volume 10.7 fL (7.5-11.0); Monocyte (Absolute #) 0.66 x10^3/uL (0.0-1.3); Monocytes % 7.8 % (0.0-12.0); Neutrophil % 53.5 % (36.0-66.0); Platelet Count 244 x10^3/uL (150-450); Red Blood Count 5.23 x10^6/uL (4.1-5.4); Red Cell Distribution Width 13.1 % (11.5-14.0); White Blood Count 8.5 x10^3/uL (4.0-10.5)
[2023-04-26 07:02] LABS: ALBUMIN 4.7 g/dL (3.5-5.0); ANION GAP 14.1 MEQ/L (5-15); BILIRUBIN,TOTAL 0.7 mg/dL (0.2-1.3); Calcium 9.9 mg/dL (8.4-10.2); Creatinine 1 0.78 mg/dL (0.52-1.04); EST GLOMERULAR FILTRATION RATE 92.5 ML/MIN; Potassium 3.6 mmol/L (3.5-5.1)
[2023-04-26] MEDS ORDERED: Sodium Chloride 0.9% 1000 ML 1,000 ML ONE (07:18)
--- NOTE | 2023-04-26 08:22 | XRAY ---
CLINICAL HISTORY:Syncopal episode COMPARISON:12/20/2022 TECHNIQUE:Axial non-contrast CT scan of the brain was performed from the skull base to the high parietal region with reformated images. FINDINGS: The visualized brain parenchyma shows a normal appearance. Marroquin-white matter differentiation is maintained. No midline shifts or deformity. No intracerebral or extra axial hematoma. Normal size and configuration of the cerebral ventricles. Normal CT appearance of the posterior fossa structures namely the cerebellar hemispheres, brainstem and cerebellar peduncles. The IACs are unremarkable. The cerebello-pontine angles are clear. The osseous structures in the skull base are unremarkable. No definite calvarium fractures. Mild vascular calcifications at the vertebral arteries. IMPRESSION: Unremarkable CT study of the brain. Electronically Signed by: Zaida Bowie MD. (04/26/2023 08:19:09 EST)
--- NOTE | 2023-04-26 08:27 | XRAY ---
CLINICAL HISTORY:ABD pain; diarrhea COMPARISON:None TECHNIQUE:Axial CT cuts were taken through the abdomen and pelvis with multiplanar reformatting and without contrast administration. FINDINGS: Both kidneys are of normal size and shape with no stones or back pressure changes. Mildly prominent extra renal pelvis bilaterally. Normal course and caliber of both ureters with no evidence of stones or mural abnormalities. Normal filling of the urinary bladder with no stones, masses or diverticula. The uterus is not visualized, likely surgically removed. The liver shows low attenuation denoting fatty infiltration with focal areas of fatty sparing surrounding the gall bladder. Multiple splenic and small hepatic calcifications, likely old granulomas. Sigmoid and descending colon diverticulae with no evidence of acute diverticulitis. Hypserdense bowel contents are seen in the distal colon. The rest of the visualized bowel loops shoiwng no significant abnormalities. The pancreas, adrenal glands and great vessels are grossly within normal limits apart from atheromatous calcifications. No significant lymph madonna enlargement or ascetic fluid collection. Bone window images show mild spondylotic changes. Lower chest cuts show right lower lobe calcified granuloma and calcified right hilar lymph node. Small umbilical hernia containing fat. IMPRESSION: 1. No evidence of urolithiasis or back pressure changes. 2. Fatty liver with focal areas of fatty sparing. 3. Multiple splenic and small hepatic calcifications. 4. Mild sigmoid and descending colon diverticulosis. 5. Right lower lobe calcified granuloma and calcified right hilar lymph node. 6. Small umbilical hernia containing fat. Electronically Signed by: Zaida Bowie MD. (04/26/2023 08:21:44 EST)
[2023-04-26 08:47] LABS: INFLUENZA A NEGATIVE (NEGATIVE); INFLUENZA B NEGATIVE (NEGATIVE); RESPIRATORY SYNCTIAL VIRUS NEGATIVE (NEGATIVE); SARS-CoV-2 Xpert Express NEGATIVE (NEGATIVE)
--- NOTE | 2023-04-26 09:13 | XRAY ---
Indication: Elevated d-dimer. Multiple contiguous axial images obtained through the chest using 100 cc Isovue 370 contrast and PE protocol. Comparison: None Good opacification of the pulmonary arteries to include the lobar and segmental branches. No pulmonary embolus. Heart is not enlarged. Aorta minimally arteriosclerotic without aneurysm/dissection. Tiny right hilar calcified nodes. No pathologic mediastinal/hilar lymphadenopathy. Small hiatal hernia. Lungs demonstrates minimal biapical subpleural cystic changes and small right lower lobe calcified granuloma. No suspicious pulmonary mass/nodule, infiltrate, effusion, or pneumothorax. Bony thorax demonstrates minimal degenerative changes throughout the spine and multiple old bilateral rib fractures. CT abdomen/pelvis reported separately. Impression: 1. Negative pulmonary embolus. No acute cardiopulmonary abnormalities. 2. Chronic findings including biapical subpleural cystic changes, arteriosclerotic disease, hiatal hernia, chronic bony findings, and old granulomatous disease.
[2023-04-26 10:05] VITALS: O2SAT 92
[2023-04-26 10:21] LABS: Appearance Clear (Clear); Bacteria None Seen /HPF (None Seen); Bilirubin Negative (Negative); Blood Negative (Negative); Epithelial Cells Few /HPF (None Seen); Glucose, Urine Negative (Negative); Hyaline Casts NONE SEEN /LPF (0-2); Ketones Negative (Negative); Leukocyte Esterase Negative (Negative); Nitrite Negative (Negative); Protein,Urine Dip Negative (Negative); RBC 0-2 /HPF (0-5); Specific Gravity >=1.030 (1.005-1.030); Urobilinogen 0.2 mg/dL (0.2); WBC 0-2 /HPF (0-5)
[2023-04-26 10:22] LABS: ADD URINE CULTURE? NO (NO)
[2023-04-26 11:12] VITALS: BP 136/70; PULSE 69; RESP 19
== END 2023-04-26 11:39 | disposition home or self-care (01) ==
LOC: ED 05:44
DX: R55 Syncope and collapse (principal); R19.7 Diarrhea, unspecified; R10.9 Unspecified abdominal pain; R11.0 Nausea; E78.5 Hyperlipidemia, unspecified; I10 Essential (primary) hypertension; E11.9 Type 2 diabetes mellitus without complications; Z79.899 Other long term (current) drug therapy; Z72.0 Tobacco use
CPT/HCPCS: 0241U; 36000; 36415; 70450; 71260; 74176; 80053; 81001; 84484; 85025; 85379; 93005; 99284

== ENCOUNTER 2023-06-21 05:46 | Day surgery (SDC) | payer OTHER ==
[2023-06-21] MEDS ORDERED: Lactated Ringers 1,000 ML IV SCH (06:30)
[2023-06-21 06:41] VITALS: RESP 16
[2023-06-21] MEDS ORDERED: DIPRIVAN 200 MG/20 ML IV ONE ×3 (07:26→07:57)
[2023-06-21] MEDS ORDERED: Versed 2 MG/2 ML Injection ONE (07:26)
[2023-06-21 08:22] VITALS: O2SAT 94
[2023-06-21 08:40] VITALS: BP 131/80; PULSE 85; TEMP 97.9
--- NOTE | 2023-06-21 09:21 | OP ---
SURGERY DATE/TIME: 06/21/2023 0731 PREOPERATIVE DIAGNOSIS: Screening exam. POSTOPERATIVE DIAGNOSIS: Colon polyps. PROCEDURE: Colonoscopy with cold forceps biopsy. SURGEON: Dr. Rivas. ANESTHESIA: Medications given by anesthesia department. HISTORY: The patient is a 48-year-old white female presenting now for screening colonoscopy. She reports she has alternating constipation and diarrhea which is felt to likely be irritable bowel. After discussing the procedure with the patient including the risk of perforation, phlebitis, untoward reaction to medication, bleeding and missed lesions, the patient verbalized her understanding and desired to have the procedure performed. DESCRIPTION OF PROCEDURE: The patient was given the medications by the anesthesia department. She had continuous pulse oximetry, ECG monitoring and intermittent blood pressure monitoring during the examination. She was placed in the left lateral decubitus position. A digital rectal examination was performed and revealed normal anal sphincter tone and no masses. The flexible Olympus pediatric colonoscope was used to intubate the rectum. A view of the colon was developed sequentially to the cecum. Upon insertion and withdrawal was noted a few small polyps in the rectum that likely represent hyperplastic polyp. These were biopsied to be sure there was not any tubular adenoma change. The scope was removed from the patient who tolerated the procedure well and was sent back to OP recovery in good condition. The prep was noted to be fair to good.
== END 2023-06-21 08:43 | disposition home or self-care (01) ==
LOC: SDC 05:46
PROVIDERS: ATTEND Family Medicine
DX: Z12.11 Encounter for screening for malignant neoplasm of colon (principal); K63.5 Polyp of colon; E11.9 Type 2 diabetes mellitus without complications
CPT/HCPCS: 82947; 93005; J2250; J2704

== ENCOUNTER 2023-10-23 15:45 | Emergency (ER) | payer OTHER ==
--- NOTE | 2023-10-23 16:15 | ERPHSYRPT ---
- History of Present Illness Time Seen by Provider: 10/23/23 16:15 Source: patient, family Exam Limitations: no limitations Physician History: This is a 48-year-old obese white female patient of nurse practitioner Yoni who complains of generalized weakness as well as "gas in my chest" that has been happening intermittently over the last 5 days. She describes this as a gas pressure with occasional burning substernally and in the epigastric region. Patient has a significant history of vasovagal episodes. She sees round boner Dr. Menjivar. Patient has a history of hypertension, seizures, depression, diabetes, anxiety issues, hyperlipidemia Timing/Duration: day(s) (5), intermittent Severity: mild (To moderate) Associated Symptoms: heartburn, chest pain (He describes this is gas pressure and burning), weakness, No shortness of breath Allergies/Adverse Reactions: morphine Allergy (Intermediate, Verified 10/23/23 16:22) Hives Home Medications: Dextroamphetamine/Amphetamine [Adderall 20 mg Tablet] 20 mg PO TID 08/03/16 [History] Loratadine 10 mg [Claritin 10 mg] 10 mg PO DAILY 08/03/16 [History] Metoprolol Succinate 100 mg [Toprol Xl 100 MG] 100 mg PO DAILY 08/03/16 [History] Aspirin 325 mg PO DAILY 04/26/23 [History] Atorvastatin Calcium 40 mg PO DAILY 06/18/23 [History] Cholecalciferol (Vitamin D3) [Vitamin D3] 2,000 unit PO DAILY 06/18/23 [History] Cyanocobalamin (Vitamin B-12) [Vitamin B-12] 1,000 mcg SQ UD 06/18/23 [History] Escitalopram Oxalate 20 mg PO DAILY 06/18/23 [History] Fluticasone Propionate [Flonase NASAL] 50 mcg INTRANASAL DAILY 06/18/23 [History] Lisinopril/Hydrochlorothiazide [Lisinopril-Hctz 20-12.5 mg Tab] 1 each PO DAILY 06/18/23 [History] Oxcarbazepine [Oxtellar Xr] 600 mg PO DAILY 06/18/23 [History] Hx Tetanus, Diphtheria Vaccination/Date Given: No Hx Influenza Vaccination/Date Given: No Hx Pneumococcal Vaccination/Date Given: No Travel Risk - International Travel Have you traveled outside of the country in past 3 weeks: No - Emerging Infectious Disease Are you exhibiting symptoms associated with any current EIDs: No - Review of Systems Constitutional: Weakness (Generalized) Eyes: No Symptoms Ears, Nose, & Throat: No Symptoms Respiratory: No Symptoms Cardiac: No Symptoms Abdominal/Gastrointestinal: No Symptoms Genitourinary Symptoms: No Symptoms Musculoskeletal: No Symptoms Skin: No Symptoms Neurological: No Symptoms Psychological: No Symptoms Endocrine: No Symptoms Hematologic/Lymphatic: No Symptoms Immunological/Allergic: No Symptoms All Other Systems: Reviewed and Negative - Past Medical History Pertinent Past Medical History: Yes Neurological History: Seizures ENT History: No Pertinent History Cardiac History: Other Respiratory History: Bronchitis Endocrine Medical History: Diabetes Type II Musculoskeletal History: No Pertinent History GI Medical History: No Pertinent History History: No Pertinent History Psycho-Social History: Depression, Other Female Reproductive Disorders: No Pertinent History Other Medical History: last seizure 3 years ago due to prilosec, vagal episode and reports daughter had to do cpr October 28 - Past Surgical History Past Surgical History: Yes Neuro Surgical History: No Pertinent History Cardiac: No Pertinent History Respiratory: No Pertinent History Gastrointestinal: Appendectomy Genitourinary: No Pertinent History Musculoskeletal: No Pertinent History Female Surgical History: Hysterectomy, Tubal Ligation Other Surgical History: bladder repair - Social History Smoking Status: Current every day smoker How long have you smoked: 20 Exposure to second hand smoke: No Drug Use: none Patient Lives Alone: No - Nursing Vital Signs Nursing Vital Signs: Initial Vital Signs Temperature 97.3 F 10/23/23 16:07 Pulse Rate 89 10/23/23 16:07 Respiratory Rate 17 10/23/23 16:07 Blood Pressure 150/91 10/23/23 16:07 O2 Sat by Pulse Oximetry 97 10/23/23 16:07 Pain Scale Pain Intensity 0 - Physical Exam General Appearance: no apparent distress, alert, anxiety, obese Eye Exam: PERRL/EOMI, eyes nml inspection Ears, Nose, Throat Exam: normal ENT inspection, moist mucous membranes Neck Exam: normal inspection, non-tender, supple, full range of motion Respiratory Exam: normal breath sounds, chest tenderness (Described as a gas pressure and burning), lungs clear, airway intact, No respiratory distress Cardiovascular Exam: regular rate/rhythm, normal heart sounds, normal peripheral pulses Gastrointestinal/Abdomen Exam: soft, normal bowel sounds, No tenderness Pelvic Exam: not done Rectal Exam: not done Back Exam: normal inspection, normal range of motion, No CVA tenderness, No vertebral tenderness Extremity Exam: normal inspection, normal range of motion, pelvis stable Neurologic Exam: alert, oriented x 3, cooperative, physician liaison II-XII nml as tested, nml cerebellar function, nml station & gait, sensation nml Skin Exam: normal color, warm, dry Lymphatic Exam: No adenopathy SpO2 Interpretation: normal O2 Delivery: Room Air - Course Nursing assessment & vital signs reviewed: Yes Ordered Tests: Active Orders 24 hr Category Date Time Status EKG-ER Only STAT Care 10/23/23 16:13 Active IV Insertion STAT Care 10/23/23 16:13 Active CBC W DIFF Stat Lab 10/23/23 16:25 Completed CMP Stat Lab 10/23/23 16:25 Completed MAGNESIUM Stat Lab 10/23/23 16:25 Completed NT PRO BNPII Stat Lab 10/23/23 16:25 Completed TROPONIN Q4H Lab 10/23/23 16:25 Completed TROPONIN Q4H Lab 10/23/23 20:15 Ordered TROPONIN Q4H Lab 10/24/23 00:15 Ordered UA W/RFX UR CULTURE Stat Lab 10/23/23 16:14 Ordered Medication Summary Generic Name Dose Route Start Last Admin Trade Name Freq PRN Reason Stop Dose Admin Sodium Chloride 1,000 mls @ 100 mls/hr 10/23/23 16:15 10/23/23 16:56 Sodium Chloride 0.9% 1000 Ml IV 11/22/23 16:14 100 mls/hr .Q10H CRISTIANA Administration Discontinued Medications Generic Name Dose Route Start Last Admin Trade Name Freq PRN Reason Stop Dose Admin Al Hydrox/Mg Hydrox/Simethicone Confirm 10/23/23 17:25 Mag Hydrox/Al Hydrox/Simeth 30 Ml Udcup Administered 10/23/23 17:26 Dose 30 ml .ROUTE .STK-MED ONE Lidocaine HCl Confirm 10/23/23 17:24 Lidocaine Hcl 2% Viscous 15 Ml Udcup Administered 10/23/23 17:25 Dose 15 ml .ROUTE .STK-MED ONE Magnesium Hydroxide 45 ml 10/23/23 17:01 10/23/23 17:29 Mag Hydrx/Alum Hyd/Simeth/Lido 45 Ml Bottle PO 10/23/23 17:02 45 ml STAT ONE Administration Pantoprazole Sodium 40 mg 10/23/23 16:58 10/23/23 17:37 Pantoprazole 40 Mg Vial IV 10/23/23 16:59 40 mg STAT ONE Administration Pantoprazole Sodium Confirm 10/23/23 17:24 Pantoprazole 40 Mg Vial Administered 10/23/23 17:25 Dose 40 mg IV .STK-MED ONE Lab/Rad Data: Laboratory Result Diagrams 10/23/23 16:25 10/23/23 16:25 Laboratory Results 10/23/23 10/23/23 10/23/23 Range/Units 16:25 16:25 16:25 WBC 8.1 (4.0-10.5) x10^3/uL RBC 5.00 (4.1-5.4) x10^6/uL Hgb 15.1 (12.0-16.0) g/dL Hct 43.4 (35-47) % MCV 86.8 (78-100) fL MCH 30.2 (26-32) pg MCHC 34.8 (32-36) g/dL RDW 12.6 (11.5-14.0) % Plt Count 224 (150-450) x10^3/uL MPV 10.8 (7.5-11.0) fL Gran % 57.5 (36.0-66.0) % Immature Gran % (Auto) 0.4 (0.00-0.4) % Nucleat RBC Rel Count 0.0 (0.00-0.1) % Eos # (Auto) 0.21 (0-0.5) x10^3/uL Immature Gran # (Auto) 0.03 (0.00-0.03) x10^3u/L Absolute Lymphs (auto) 2.48 (1.0-4.6) x10^3/uL Absolute Monos (auto) 0.66 (0.0-1.3) x10^3/uL Absolute Nucleated RBC 0.00 (0.00-0.01) x10^3u/L Lymphocytes % 30.8 (24.0-44.0) % Monocytes % 8.2 (0.0-12.0) % Eosinophils % 2.6 (0.00-5.0) % Basophils % 0.5 (0.0-0.4) % Absolute Granulocytes 4.63 (1.4-6.9) x10^3/uL Basophils # 0.04 (0-0.4) x10^3/uL Sodium 137 (135-145) mmol/L Potassium 3.8 (3.5-5.1) mmol/L Chloride 106 (98-107) mmol/L Carbon Dioxide 25 (22-30) mmol/L Anion Gap 10.4 (5-15) MEQ/L BUN 17 (7-17) mg/dL Creatinine 0.64 (0.52-1.04) mg/dL Estimated GFR 107.6 ML/MIN Glucose 212 H (74-106) mg/dL Calcium 9.7 (8.4-10.2) mg/dL Magnesium 1.9 (1.6-2.3) mg/dL Total Bilirubin 0.40 (0.2-1.3) mg/dL AST 53 H (14-36) U/L ALT 84 H (0-35) U/L Alkaline Phosphatase 94 (38-126) U/L Troponin I 0.015 (0.000-0.033) ng/mL NT-Pro-B Natriuret Pep < 20.0 (<300) pg/mL Serum Total Protein 7.6 (6.3-8.2) g/dL Albumin 4.2 (3.5-5.0) g/dL - Progress Progress: improved, re-examined Progress Note: 10/23/23 17:23 My medical decision making and the moderate complexity to this patient's medical issue today is based on review of the patient's past medical history, review the patient's medication list, review of patient drug allergy list, history pre sent illness and physical findings on examination. The workup in this patient includes placement of intravenous line, CBC, CMP, troponin level, BNP, twelve- lead EKG, chest x-ray Differential diagnosis includes gastroesophageal reflux, myocardial infarction, electrolyte abnormalities, arrhythmias, ulcer disease. 10/23/23 18:41 I interpreted the patient's laboratory data results. Patient has not provided us with a urine. The remainder of her workup at this point is negative for any acute, emergent medical issue. Patient does not want to wait for the 3-hour troponin and EKG. Patient states that she feels comfortable leaving at this point. She got the all clear from her round boner last week. I explained to her that she was to sign an AMA form. She understands the risks of leaving be fore complete, full workup could include worsening condition and even . She also understands the benefit of staying and completing the workup. Patient is awake alert and oriented as is her significant other. She wishes to sign the AGAINST MEDICAL ADVICE form Counseled pt/family regarding: lab results, diagnosis, need for follow-up Medical Desision Making - Independent Historian Additional History obtained from: Family - Diagnostic Testing Diagnostic test were ordered, analyzed, and reviewed by me: Yes - Risk of complications Low Risk: Low risk of morbidity from additional dx testing or treatment - Departure Departure Disposition: AMA Clinical Impression: Chest pain Condition: Stable Critical Care Time: No Referrals: MICHELA KAUFFMAN NP [Primary Care Provider] - Follow up/PCP as directed Additional Instructions: Take all your medication as prescribed. Return to the emergency department if your symptoms worsen.
[2023-10-23 16:28] VITALS: TEMP 97.3
[2023-10-23 16:28] LABS: Absolute Neutrophil Ct (ANC) 4.63 x10^3/uL (1.4-6.9); BASOPHIL % 0.5 % (0.0-0.4); Basophil (Absolute #) 0.04 x10^3/uL (0-0.4); Eosinophil % 2.6 % (0.00-5.0); Eosinophil (Absolute #) 0.21 x10^3/uL (0-0.5); Hematocrit 43.4 % (35-47); Hemoglobin 15.1 g/dL (12.0-16.0); IMMATURE GRAN # 0.03 x10^3u/L (0.00-0.03); IMMATURE GRAN % 0.4 % (0.00-0.4); Lymphocyte (Absolute #) 2.48 x10^3/uL (1.0-4.6); Lymphocytes % 30.8 % (24.0-44.0); Mean Cell Volume 86.8 fL (78-100); Mean Corpuscular Hemoglobin 30.2 pg (26-32); Mean Corpuscular Hgb Concent. 34.8 g/dL (32-36); Mean Platelet Volume 10.8 fL (7.5-11.0); Monocyte (Absolute #) 0.66 x10^3/uL (0.0-1.3); Monocytes % 8.2 % (0.0-12.0); Neutrophil % 57.5 % (36.0-66.0); Platelet Count 224 x10^3/uL (150-450); Red Cell Distribution Width 12.6 % (11.5-14.0); White Blood Count 8.1 x10^3/uL (4.0-10.5)
[2023-10-23] MEDS ORDERED: Sodium Chloride 0.9% 1000 ML 1,000 ML ONE (16:47)
[2023-10-23 16:50] LABS: ALBUMIN 4.2 g/dL (3.5-5.0); ALKALINE PHOSPHATASE 94 U/L (38-126); ANION GAP 10.4 MEQ/L (5-15); BLOOD UREA NITROGEN 17 mg/dL (7-17); CHLORIDE 106 mmol/L (98-107); Calcium 9.7 mg/dL (8.4-10.2); Carbon Dioxide 25 mmol/L (22-30); Creatinine 1 0.64 mg/dL (0.52-1.04); EST GLOMERULAR FILTRATION RATE 107.6 ML/MIN; Glucose 212 mg/dL (74-106); MAGNESIUM 1.9 mg/dL (1.6-2.3); NT PRO BNPII < 20.0 pg/mL (<300); Potassium 3.8 mmol/L (3.5-5.1); SGOT/AST 53 U/L (14-36); SGPT/ALT 84 U/L (0-35); SODIUM 137 mmol/L (135-145); Total Protein 7.6 g/dL (6.3-8.2)
[2023-10-23] MEDS: Sodium Chloride 0.9% 1000 ML 1,000 ML IV SCH (16:56)
[2023-10-23] MEDS ORDERED: XYLOCAINE VISCOUS 2% 15 ML CUP ONE (17:24)
[2023-10-23] MEDS ORDERED: PROTONIX 40 MG IV IV ONE (17:24)
[2023-10-23] MEDS ORDERED: MAALOX ES 30 ML UNIT DOSE ONE (17:25)
[2023-10-23] MEDS: GI COCKTAIL 45 ML (Maalox/Lidocaine) PO ONE (17:29)
[2023-10-23] MEDS: PROTONIX 40 MG IV IV ONE (17:37)
[2023-10-23 18:15] VITALS: PULSE 83; O2SAT 94
[2023-10-23 18:47] VITALS: BP 114/78; RESP 25
== END 2023-10-23 18:52 | disposition home or self-care (01) ==
LOC: ED 15:45
DX: R07.9 Chest pain, unspecified (principal); R53.1 Weakness; I10 Essential (primary) hypertension; E11.9 Type 2 diabetes mellitus without complications; E78.5 Hyperlipidemia, unspecified; Z79.899 Other long term (current) drug therapy; Z72.0 Tobacco use
CPT/HCPCS: 36000; 36415; 80053; 83735; 83880; 84484; 85025; 93005; 96374; 99284; A9270-GY

== ENCOUNTER 2024-06-18 13:48 | Emergency (ER) | payer OTHER ==
[2024-06-18 14:13] VITALS: TEMP 97.2
[2024-06-18] MEDS ORDERED: Hydromorphone 1 mg/ml Injection ONE (14:32)
[2024-06-18] MEDS: Hydromorphone 1 mg/ml Injection IM ONE (14:34)
--- NOTE | 2024-06-18 15:10 | XRAY ---
Indication: Pain following fall. Comparison: None AP pelvis and 2 view left hip demonstrates osteopenia. No other bony, articular, or soft tissue abnormalities.
--- NOTE | 2024-06-18 15:10 | XRAY ---
Indication: Status post fall. Comparison: None AP chest and 2 view right ribs demonstrates osteopenia and old lateral left 3-5 ribs fractures. No acute bony or articular abnormalities. AP chest demonstrates inflated and clear lungs. Heart borderline enlarged. No acute cardiopulmonary abnormalities.
[2024-06-18] MEDS ORDERED: CLONIDINE 0.1 MG TABLET ONE (15:50)
[2024-06-18] MEDS ORDERED: ZOFRAN ODT 4 MG ONE (15:50)
[2024-06-18] MEDS: ZOFRAN ODT 4 MG PO ONE (15:51)
[2024-06-18] MEDS: CLONIDINE 0.1 MG TABLET PO ONE (15:51)
--- NOTE | 2024-06-18 16:11 | ERPHSYRPT ---
- History of Present Illness Time Seen by Provider: 06/18/24 13:53 Source: patient Exam Limitations: no limitations Patient Subjective Stated Complaint: Fall- right sided rib and left groin pain 8/10 Triage Nursing Assessment: Patient ambulated back to ED with slow and steady gait. Patient A+O X3. Patient's skin pink, warm and dry. Patient complains of fall. Patient states she got out of her car and slipped on ice landing on her back. Patient complains of right sided rib, left groin/hip, and neck pain 8/10Patient unware if she hit head. Physician History: 49-year-old female with a history of hypertension, hyperlipidemia presented in the ER with her after she slipped on ice while getting out of the car and landed on her left hip and did hit her right lower chest wall. Complaining of moderate intensity sharp shooting pain in the right lower chest wall which hurts to move, take a deep breath and palpation. Also reports some pain in the left hip and groin area. Minimal pain in the neck but no headache. Does not remember hitting her head, loss of consciousness. Patient reports she was able to get up on her own. Denies having chest pain palpitations, shortness of breath, feeling dizzy or lightheaded before or after the fall but does have right lower chest wall pain. No abdominal pain nausea or vomiting. No back pain. Patient blood pressure is elevated which she reports has not taken her routine medications today. Allergies/Adverse Reactions: morphine Allergy (Intermediate, Verified 06/18/24 13:55) Hives Home Medications: Dextroamphetamine/Amphetamine [Adderall 20 mg Tablet] 20 mg PO TID 08/03/16 [History] Loratadine 10 mg [Claritin 10 mg] 10 mg PO DAILY 08/03/16 [History] Metoprolol Succinate 100 mg [Toprol Xl 100 MG] 100 mg PO DAILY 08/03/16 [History] Aspirin 325 mg PO DAILY 04/26/23 [History] Atorvastatin Calcium 40 mg PO DAILY 06/18/23 [History] Cholecalciferol (Vitamin D3) [Vitamin D3] 2,000 unit PO DAILY 06/18/23 [History] Cyanocobalamin (Vitamin B-12) [Vitamin B-12] 1,000 mcg SQ UD 06/18/23 [History] Escitalopram Oxalate 20 mg PO DAILY 06/18/23 [History] Fluticasone Propionate [Flonase NASAL] 50 mcg INTRANASAL DAILY 06/18/23 [History] Lisinopril/Hydrochlorothiazide [Lisinopril-Hctz 20-12.5 mg Tab] 1 each PO DAILY 06/18/23 [History] OXcarbazepine [Oxtellar Xr] 600 mg PO DAILY 06/18/23 [History] Hx Tetanus, Diphtheria Vaccination/Date Given: No Hx Influenza Vaccination/Date Given: Yes Hx Pneumococcal Vaccination/Date Given: No Immunizations Up to Date: Yes Travel Risk - International Travel Have you traveled outside of the country in past 3 weeks: No - Emerging Infectious Disease Are you exhibiting symptoms associated with any current EIDs: No - Review of Systems Constitutional: No Symptoms Eyes: No Symptoms Ears, Nose, & Throat: No Symptoms Respiratory: No Symptoms Cardiac: Chest Pain Abdominal/Gastrointestinal: No Symptoms Genitourinary Symptoms: No Symptoms Musculoskeletal: Fall, Injury, Joint Pain Skin: No Symptoms Neurological: No Symptoms Psychological: No Symptoms Endocrine: No Symptoms Hematologic/Lymphatic: No Symptoms - Past Medical History Pertinent Past Medical History: Yes Neurological History: Seizures ENT History: No Pertinent History Cardiac History: Other Respiratory History: Bronchitis Endocrine Medical History: Diabetes Type II Musculoskeletal History: No Pertinent History GI Medical History: No Pertinent History History: No Pertinent History Psycho-Social History: Depression, Other Female Reproductive Disorders: No Pertinent History Other Medical History: last seizure 3 years ago due to prilosec, vagal episode and reports daughter had to do cpr October 28 - Past Surgical History Past Surgical History: Yes Neuro Surgical History: No Pertinent History Cardiac: No Pertinent History Respiratory: No Pertinent History Gastrointestinal: Appendectomy Genitourinary: No Pertinent History Musculoskeletal: No Pertinent History Female Surgical History: Hysterectomy, Tubal Ligation Other Surgical History: bladder repair - Female History Hx Last Menstrual Period: hyerectomy Hx Now: No - Social History Smoking Status: Current every day smoker How long have you smoked: 20 Exposure to second hand smoke: Yes Drug Use: none Patient Lives Alone: No - Social Determinants of Health Will the patient participate in the screening: Yes Do you worry about a steady place to live?: No Do you have any problems with any of the following?: No known problems In the past 12 months,have you had to go without utilities?: No Transportation Issues: No Has anyone in your support network made you feel unsafe?: No Have you or anyone in your house had to go without enough: No - Nursing Vital Signs Nursing Vital Signs: Initial Vital Signs Temperature 97.2 F 06/18/24 13:57 Pulse Rate 85 06/18/24 13:57 Respiratory Rate 20 06/18/24 13:57 Blood Pressure 204/129 06/18/24 13:57 O2 Sat by Pulse Oximetry 97 06/18/24 13:57 Pain Scale Pain Intensity 7 - Tomas Coma Score Best Eye Response (Tomas): (4) open spontaneously Best Verbal Response ([place]): (5) oriented Best Motor Response (Tomas): (6) obeys commands [place] Total: 15 - Physical Exam General Appearance: no apparent distress, alert Head Injury: no evidence of injury Eye Exam: PERRL/EOMI, eyes nml inspection ENT Exam: airway nml, nml ext.inspection, No evidence of ENT injury, No dental injury Neck Exam: supple, trachea midline, full range of motion, normal alignment, normal inspection, No focal neuro deficit, No limited range of motion, No muscle spasm, No paraspinous muscle tender, No pain on movement of neck, No stiff neck, No tenderness, No tender lateral, No mid-line tenderness Respiratory/Chest Exam: chest tenderness (Right anterolateral chest wall with no crepitus or flail segment.), normal breath sounds, No respiratory distress Cardiovascular Exam: normal heart sounds, regular rate/rhythm Gastrointestinal Exam: soft, normal bowel sounds, No tenderness Back Exam: normal inspection, normal range of motion, No CVA tenderness Extremity Exam: normal inspection, pain with movement (Left hip), No sensory deficit Neurologic Exam: alert, oriented x 3, cooperative, carpenters helper II-XII nml as tested, normal mood/affect, nml cerebellar function, sensation nml, No motor deficits SpO2 Interpretation: normal SpO2: 94 O2 Delivery: Room Air Ordered Tests: Active Orders 24 hr Category Date Time Status HIP UNI (2V) INCL PEL IF DONE Stat Exams 06/18/24 14:18 Completed RIBS UNILATERAL W/ PA CXR Stat Exams 06/18/24 14:17 Completed POCT GLUCOSE Stat Lab 06/18/24 14:05 Completed Medication Summary Discontinued Medications Generic Name Dose Route Start Last Admin Trade Name Branden PRN Reason Stop Dose Admin Clonidine 0.2 mg 06/18/24 15:46 06/18/24 15:51 Clonidine Hcl 0.1 Mg Tablet PO 06/18/24 15:47 0.2 mg STAT ONE Administration Clonidine Confirm 06/18/24 15:50 Clonidine Hcl 0.1 Mg Tablet Administered 06/18/24 15:51 Dose 0.2 mg .ROUTE .STK-MED ONE Hydromorphone HCl 1 mg 06/18/24 14:17 06/18/24 14:34 Hydromorphone 1 Mg/1ml Inj IM 06/18/24 14:18 1 mg STAT ONE Administration Hydromorphone HCl Confirm 06/18/24 14:32 Hydromorphone 1 Mg/1ml Inj Administered 06/18/24 14:33 Dose 1 mg .ROUTE .STK-MED ONE Ondansetron HCl 4 mg 06/18/24 15:11 06/18/24 15:51 Zofran 4 Mg/Udtablet Orally Disintegrating PO 06/18/24 15:12 4 mg STAT ONE Administration Ondansetron HCl Confirm 06/18/24 15:50 Zofran 4 Mg/Udtablet Orally Disintegrating Administered 06/18/24 15:51 Dose 4 mg .ROUTE .STK-MED ONE Lab/Rad Data: Laboratory Results 06/18/24 Range/Units 14:05 POC Glucometer 149 H (74 to 106) mg/dL - Progress Progress: improved Progress Note: 06/18/24 16:52 49-year-old with history of hypertension, hyperlipidemia is evaluated in the ER after she slipped on ice with a complaint of right lower anterolateral chest wall and left hip pain. Patient has nonfocal neuroexam. Has some tenderness in the right anterolateral chest wall with no flail segment/crepitus. Has painful movements of the left hip. No midline tenderness. No cervical spine tenderness. She is given symptomatic treatment for pain, feeling better on reevaluation. X-rays rib series and chest are negative for any acute fracture rib, pneumothorax or any other acute cardiopulmonary findings. X-rays of left hip are negative as well. Patient blood pressure was in 190s, she has not taken her medications. She is given clonidine with improvement in blood pressure in 160s. She is advised/counseled on medication compliance. Recommended keeping a log of blood pressure and outpatient follow-up with PCP. I would give her few days worth of [place] to go home as I believe patient has rib contusion. Recommended outpatient follow-up. Discussed signs symptoms of worsening needing return to ER which she seems understanding. Stable for discharge. Counseled pt/family regarding: diagnosis, need for follow-up, rad results, smoking cessation Medical Desision Making - Independent Historian Additional History obtained from: Spouse - Diagnostic Testing Diagnostic test were ordered, analyzed, and reviewed by me: Yes Radiological Interpretation: Reviewed by me - Risk of complications The pt has a mod risk of morbidity or mortality based on: Need for prescription drug management - Departure Departure Disposition: Home Clinical Impression: Chest wall contusion, Hip strain, Uncontrolled hypertension Condition: Stable Critical Care Time: No Referrals: MICHELA KAUFFMAN NP [Primary Care Provider] - Follow up with PCP 1 day Instructions: Contusion (DC) Additional Instructions: Intermittent ice application. Avoid exertional activities. Use cane/walker for ambulation to avoid a fall. Do deep breathing exercises. Follow-up with primary care for reevaluation. Take pain medications as needed. Return to ER for intractable pain, difficulty breathing or if having intractable headache, neck pain etc. Monitor your blood pressure regularly, keep a log and follow-up with PCP for reevaluation to see if needs adjustment in dosage of medications Prescriptions: Hydrocodone/Acetaminophen [Hydrocodone-Acetamin 7.5-325] 1 each PO Q6HPRN PRN 3 Days #12 tablet MDD 4 PRN Reason: Pain
[2024-06-18 17:11] VITALS: BP 149/93; PULSE 70; RESP 16; O2SAT 93
== END 2024-06-18 17:18 | disposition home or self-care (01) ==
LOC: ED 13:48
DX: S20.211A Contusion of right front wall of thorax, initial encounter (principal); S76.012A Strain of muscle, fascia and tendon of left hip, initial encounter; W00.0XXA Fall on same level due to ice and snow, initial encounter; I10 Essential (primary) hypertension; E78.5 Hyperlipidemia, unspecified; E11.9 Type 2 diabetes mellitus without complications; Z79.891 Long term (current) use of opiate analgesic; Z79.899 Other long term (current) drug therapy; Z72.0 Tobacco use
CPT/HCPCS: 71101; 73502; 82947; 96372; 99284; J1171; Q0162; A9270-GY